=== PATIENT | female | born 1965 | race Caucasian/White ===

== ENCOUNTER → 2023-02-01 09:11 | Outpatient (CLI) | payer OTHER, SELFPAY ==
--- NOTE | ~2023-02-01 | CT_ITS ---
EXAMINATION: CT soft tissue neck w con DATE: 02/02/2023 10:09 INDICATION: Thyroid nodule. TECHNIQUE: Computed tomography (CT) of the neck was performed with 75 mL Omnipaque-350 intravenous co ntrast. Automated exposure control and iterative reconstruction technique were employed. The dose-gautam gth product was 388.87 mGy-cm. COMPARISON: None FINDINGS: There are multiple nodules in the thyroid measuring up to 4.0 cm on the right. There are no pathologically enlarged lymph nodes. The cervical carotid arteries are normal. There is severe cervi redd spondylosis, worst at C5-C6. There is mild mucosal thickening in the ethmoid sinuses. The mastoid air cells are normal. IMPRESSION: 1. Multinodular goiter. Ultrasound-guided fine-needle aspiration of the 4.0 cm right thyroid nodule i s recommended. Reviewed, dictated and finalized at location A. IMPRESSION: 1. Multinodular goiter. Ultrasound-guided fine-needle aspiration of the 4.0 cm right thyroid nodule is recommended.
== END ==
DX: E04.2 Nontoxic multinodular goiter (principal)
CPT/HCPCS: 70491; Q9967

== ENCOUNTER 2023-08-22 14:45 | Outpatient (CLI) | payer OTHER, SELFPAY ==
--- NOTE | ~2023-08-22 | US_ITS ---
Thyroid ultrasound. Clinical History: Thyroid nodule Findings: Real-time sonography of the thyroid gland was performed. The right lobe has been surgicall y removed The left lobe measures 5.8 x 1.6 x 1.9 cm. Left thyroid lobe is heterogeneous. There is a 5 mm hypoechoic nodule at the left upper pole. Impression: 5 mm hypoechoic left upper pole thyroid nodule. Given size, no further follow-up required. Status post right hemithyroidectomy.. Reviewed, dictated and finalized at location M. EXAMINER Impression: 5 mm hypoechoic left upper pole thyroid nodule. Given size, no further follow-u p required. Status post right hemithyroidectomy..
== END 2023-08-22 14:46 ==
LOC: MICIMG 14:47
DX: E04.1 Nontoxic single thyroid nodule (principal)
CPT/HCPCS: 76536

== ENCOUNTER 2023-11-04 18:16 | Emergency (ER) | payer OTHER, SELFPAY ==
--- NOTE | ~2023-11-04 | XR_ITS ---
EXAM: XR ankle RT min 3V DATE: 11/04/2023 18:44 HISTORY: twisted right ankle. lateral side pain . COMPARISON: None available. FINDINGS: Normal mineralization. No fracture or dislocation. No lytic or blastic lesion. Old lateral malleolus avulsion fracture fragment. Mild tibiotalar degenerative change. Minimal plantar enthesopa thy. No erosion or periosteal change. Ankle joint effusion. IMPRESSION: No acute osseous finding in the right ankle. Reviewed, dictated and finalized at location K.
[2023-11-04 18:45] VITALS: BP 137/88; PULSE 83; RESP 16; TEMP 36.6; O2SAT 99
--- NOTE | 2023-11-04 18:50 | ED.LOWEXIN ---
HPI - Extremity Injury (Lower) General Chief Complaint: Extremity Injury, Lower Stated Complaint: right ankle pain/twisted Time Seen by Provider: 11/04/23 18:50 Source: patient Mode of arrival: ambulatory Limitations: no limitations History of Present Illness HPI Narrative: 57 yo F presents with c/o R ankle pain and swelling. Walked outside this AM to go to car and twisted right ankle. States she fell to ground and R ankle was under her when falling. Was able to get up on her own. Was visitiing daughter in [facility] and had to drive home approx. 4 hrs. Using 's cane at home which she states is helping relieve some pain. ambulatory with slight limp. ROM and distal NV intact. All systems reviewed and negative except as noted above. Related Data Home Medications Medication Instructions Recorded Confirmed esomeprazole magnesium 40 mg 40 mg PO DAILY 11/04/23 11/04/23 capsule,delayed release progesterone micronized 200 mg 200 mg PO DIRECTED 11/04/23 11/04/23 capsule Allergies Allergy/AdvReac Type Severity Reaction Status Date / Time No Known Allergies Allergy Verified 11/04/23 19:14 Review of Systems Review of Systems: CONSTITUTIONAL: Denies fever, chills, or sweats. EYES: Denies visual changes, redness, or discharge. ENT: Denies rhinorrhea, congestion, sore throat, or otalgia. CARDIOVASCULAR: Denies chest pain, palpitations, or edema. RESPIRATORY: Denies cough or dyspnea. GASTROINTESTINAL: Denies abdominal pain, nausea, vomiting, or diarrhea. GENITOURINARY: Denies dysuria or hematuria. SKIN: Denies rash or itching. MUSCULOSKELETAL: Reports right ankle pain and swelling. Denies back pain. NEUROLOGIC: Denies headache, numbness, or weakness. PSYCHIATRIC: Denies anxiety or depression. All other systems reviewed are negative, except as documented in HPI. PMFSH Comments At time of signature, agree with nursing past medical, surgical, social and family history. There is no relevant family history pertinent to the presenting complaint. Exam Narrative: GENERAL: This is a well-nourished, well-developed patient, in no apparent distress. HEAD: normocephalic, atraumatic. EYES: PERRL. Sclera clear/white. Vision is grossly intact. EARS: External ears normal NOSE: External nose normal NECK: Neck supple, non-tender without lymphadenopathy, masses or thyromegaly. CARDIOVASCULAR: Regular rate and rhythm without murmurs, gallops, or rubs. RESPIRATORY: Clear to auscultation. Breath sounds equal bilaterally. No wheezes, rales, or rhonchi. SKIN: warm, Dry, intact with no suspicious lesions or rash, good texture and turgor. NEURO: awake, alert, and oriented to person, place and time. There were no obvious focal neurologic abnormalities. EXTREMITIES: Swelling to lateral aspect right ankle. No deformity noted. tenderness to posterior and anterior TFL, no instability noted. Course Course Level of Care: Express Care Visit Vital Signs Vital signs: Vital Signs Temperature 36.6 C 11/04/23 18:45 Pulse Rate 83 11/04/23 18:45 Respiratory Rate 16 11/04/23 18:45 Blood Pressure 137/88 11/04/23 18:45 Pulse Oximetry 99 11/04/23 18:45 Temperature 36.6 C 11/04/23 18:45 Pulse Rate 83 11/04/23 18:45 Respiratory Rate 16 11/04/23 18:45 Blood Pressure 137/88 11/04/23 18:45 Pulse Oximetry 99 11/04/23 18:45 Reviewed MDM - Extremity Injury (Lower) MDM Narrative Medical decision making narrative: Discussed x-ray results with patient. Negative for fracture. Placed in Nick wrap. Recommend rice. Patient is aware of diagnosis, understands and agrees to treatment plan. Anticipatory guidance given. Patient agrees to follow-up as directed and is aware of reasons to seek care at the emergency department. Portions of this record may have been created with voice recognition software Differential Diagnosis Differential diagnosis: Likely ankle sprain and strain Imaging Data
== END 2023-11-04 19:32 | disposition home or self-care (01) ==
PROVIDERS: Emergency Provider Nurse Practitioner Family; PCP Internal Medicine
DX: M25.471 Effusion, right ankle (principal); S93.401A Sprain of unspecified ligament of right ankle, initial encounter; W18.39XA Other fall on same level, initial encounter
CPT/HCPCS: 73610; 99213; G0463

== ENCOUNTER 2024-03-16 07:46 | Outpatient (CLI) | payer OTHER, SELFPAY ==
--- NOTE | ~2024-03-16 | MM_ITS ---
EXAMINATION: MM screening [facility] HISTORY: Screening TECHNIQUE: Craniocaudal and mediolateral oblique 3-D tomosynthesis images were obtained and synthetic 2-D images were generated. CAD analysis was submitted and interpreted. COMPARISON: No prior mammogram is available for comparison at this institution. BREAST PARENCHYMAL COMPOSITION: Not dense: There are scattered areas of fibroglandular density. FINDINGS: There is no evidence of suspicious mass, calcification, or architectural distortion to sugg est malignancy in either breast. There has been no suspicious interval change. IMPRESSION: 1. No mammographic evidence of malignancy. 2. Recommend routine screening mammography in one year. BI-RADS Category 1: Negative Reviewed, dictated and finalized at location B.
== END 2024-03-16 07:47 ==
LOC: MICIMG 07:47
PROVIDERS: PCP Internal Medicine
DX: Z12.31 Encounter for screening mammogram for malignant neoplasm of breast (principal)
CPT/HCPCS: 77063; 77067

== ENCOUNTER 2024-04-12 14:40 | Outpatient (CLI) | payer OTHER, SELFPAY | END 2024-04-12 14:41 | disposition home or self-care (01) | PROVIDERS: PCP Internal Medicine; Visit Provider Obstetrics & Gynecology Gynecology | DX: Z78.0 Asymptomatic menopausal state (principal) | CPT/HCPCS: 99199 ==

== ENCOUNTER 2024-04-30 14:40 | Outpatient (CLI) | payer OTHER, SELFPAY ==
--- NOTE | ~2024-04-30 | DEXA_ITS ---
Bone Density Report Name: MEGAN CARPENTER Age: 58 Sex: Female Ethnicity: White Date of : 1965 Indication: postmenopausal; screening for osteoporosis; Referring Provider: La Herrmann Study: Bone densitometry was performed. Exam Date: April 30, 2024 Accession number: [id number] Bone Density: Region BMD T-score Z-score Classification AP Spine(L1-L4) 0.919 -1.2 0.3 Osteopenia Femoral Neck (Left) 0.727 -1.1 0.2 Osteopenia Total Hip (Left) 0.879 -0.5 0.5 Normal Femoral Neck (Right) 0.719 -1.2 0.1 Osteopenia Total Hip (Right) 0.837 -0.9 0.1 Normal Femoral Neck Mean 0.723 -1.1 0.2 Osteopenia Total Hip Mean 0.858 -0.7 0.3 Normal World Health Organization criteria for BMD impression classify patients as: Normal (T-score at or above -1.0), Osteopenia (T-score between -1.0 and -2.5), or Osteoporosis (T-score at or below -2.5). 10-year Fracture Risk(1): Major Osteoporotic Fracture 7.4% Hip Fracture 0.5% Reported Risk Factors: [place] (), Neck BMD=0.719, BMI=27.5 (1) FRAX(R) Version 3.08. Fracture probability calculated for an untreated patient. Fracture probability may be lower if the patient has received treatment. Clinical Information Provided by Patient: Has used the following medications: Vitamin D, Calcium Patient maximum height was 64 Menopause Age: 48 Drinks caffeinated beverages Onset of menses at age 12 Number of children 2 Impression: The patient has low bone mass, based on the Total Spine T-score. Discussion: BONE DENSITY IS LOW AT ONE OR MORE SKELETAL SITES. This patient's lowest T-score is low at one or more skeletal sites. It meets the World Health Organization's (WHO) criteria for ?low bone mass? (T-score between -1.0 and -2.5). The patient's 10-year risk of fracture as calculated by FRAX is less than the threshold where pharmacological therapy is recommended by the National Osteoporosis Foundation (NOF). However, all treatment decisions require clinical judgment and consideration of individual patient factors, including patient preferences, comorbidities, previous drug use, risk factors not captured in the FRAX model (e.g., frailty, falls, vitamin D deficiency, increased bone turnover, interval significant decline in bone density) and possible under or overestimation of fracture risk by FRAX. The patient should follow a healthful lifestyle (good nutrition with adequate calcium and vitamin D, and appropriate weight-bearing exercise). Follow-Up: Consider repeating this study in 2 to 3 years to reassess this patient's status, or sooner if there is some new clinical indication. Reported by: CHEIKH on 05/07/2024 11:26:00 AM. Reviewed, dictated and finalized at location A.
== END 2024-04-30 14:41 | disposition home or self-care (01) ==
PROVIDERS: PCP Internal Medicine
DX: Z78.0 Asymptomatic menopausal state (principal); M85.89 Other specified disorders of bone density and structure, multiple sites
CPT/HCPCS: 77080

== ENCOUNTER 2024-05-25 11:49 | Emergency (ER) | payer OTHER, SELFPAY ==
[2024-05-25 11:51] VITALS: BP 151/86; PULSE 84; RESP 18; TEMP 36.1; O2SAT 99
[2024-05-25 13:15] VITALS: BP 153/82; PULSE 83; RESP 17; O2SAT 100; O2SAT 99
[2024-05-25 13:24] LABS: Basophils Absolute Auto 0.1 K/mm3 (0.0-0.1); Basophils Percent Auto 0.7 % (0.2-1.2); Eosinophils Percent Auto 0.5 % (0-4.4); Hemoglobin 14.1 g/dL (12.0-15.0); Immature Granulocyte Absolute 0.02 K/mm3 (0.00-0.031); Immature Granulocyte Percent A 0.3 % (0-0.5); Lymphocytes Absolute Auto 0.96 K/mm3 (0.9-3.2); Lymphocytes Percent Auto 12.6 % (18.3-44.2); Mean Corpuscular HGB Conc 32.8 g/dl (32-36); Mean Corpuscular Hemoglobin 28.4 pg (26-34); Mean Corpuscular Volume 86.5 fl (80-100); Monocytes Absolute Auto 0.4 K/mm3 (0.1-0.6); Monocytes Percent Auto 4.7 % (2.6-8.5); Neutrophils Absolute Auto 6.2 K/mm3 (1.3-6.7); Neutrophils Percent Auto 81.2 % (45.5-73.1); Platelet Count Result 279 k/mm3 (150-375); Red Blood Count 4.97 M/mm3 (4.2-5.4); Red Cell Distribution Width 12.7 % (11.5-14.5); White Blood Count 7.6 K/mm3 (4.5-10.0)
--- NOTE | 2024-05-25 13:32 | ED.GENADULT ---
HPI - General Adult General Chief complaint: Unspecified Stated complaint: cant function Time Seen by Provider: 05/25/24 13:02 History of Present Illness HPI narrative: Patient with history of migraines and strong family history of migraines presents here due to occasional episodes where she will have her start with pressure/tightness to her neck muscles that goes up to the back of her head, after which she gets very nauseous and low energy and feels like she cannot function for the rest of the day and is just mostly sleeping. Does not feel like her migraines when she was much younger. However these are similar to the migraines that 1 of her other daughters has. No recent trauma. No focal numbness or weakness. Related Data Home Medications Medication Instructions Recorded Confirmed esomeprazole magnesium 40 mg 40 mg PO DAILY 11/04/23 11/04/23 capsule,delayed release progesterone micronized 200 mg 200 mg PO DIRECTED 11/04/23 11/04/23 capsule Allergies Allergy/AdvReac Type Severity Reaction Status Date / Time No Known Allergies Allergy Verified 05/25/24 13:20 Review of Systems Review of Systems: All systems reviewed & are unremarkable except as noted in HPI and below Exam Narrative: EXAMINATION OF ORGAN SYSTEMS/BODY AREAS: Constitutional: Vital signs per nursing GENERAL:[No acute distress, non-toxic appearing.] HEAD: Normal with no signs of head trauma. EYES: EOMI, conjunctiva normal ENT: Hearing grossly intact LUNGS: Nonlabored breathing. HEART: [Regular rate and rhythm] ABD: [Soft], [nontender to palpation] EXT: Normal range of motion SKIN: [No rashes or lesions.] NEURO: [Alert and oriented x 3. No gross focal sensory or strength deficits.] PSYCH: Normal affect Course Vital Signs Vital signs: Vital Signs Temperature 97.0 F L 05/25/24 11:51 Pulse Rate 84 05/25/24 11:51 Respiratory Rate 18 05/25/24 11:51 Blood Pressure 151/86 H 05/25/24 11:51 Pulse Oximetry 99 05/25/24 11:51 Oxygen Delivery Room Air 05/25/24 11:51 Temperature 97.0 F L 05/25/24 11:51 Pulse Rate 73 05/25/24 15:25 Respiratory Rate 17 05/25/24 15:25 Blood Pressure 130/82 05/25/24 15:25 Pulse Oximetry 100 05/25/24 15:25 Oxygen Delivery Room Air 05/25/24 11:51 Medical Decision Making MDM Narrative Medical decision making narrative: 58F presents to the emergency department for headache. Patient is hemodynamically stable. No focal neurological or cranial nerve deficits on exam. No meningeal signs. The headache was gradual in onset, it is not exertional and does not appear consistent with subarachnoid hemorrhage or intracranial bleeding. No trauma. She does have a strong family and personal history of migraines and her symptoms do seem consistent with likely tension type headaches. Patient is given headache cocktail including Reglan, Toradol. Given her history of thyroid issues I did also a team broad workup which is thankfully normal. On reevaluation, the patient feels significantly better with the headache resolved. No neurological deficits. Patient is comfortable going home for outpatient follow-up with primary care physician and/or neurology and provided with strict return precautions, especially for worsening headaches, neck pain/stiffness, fever or weakness, numbness/tingling or persistent vomiting. Repeat blood pressure is now 126/78. Vital Signs Vital Signs: Vital Signs Temperature 97.0 F L 05/25/24 11:51 Pulse Rate 84 05/25/24 11:51 Respiratory Rate 18 05/25/24 11:51 Blood Pressure 151/86 H 05/25/24 11:51 Pulse Oximetry 99 05/25/24 11:51 Oxygen Delivery Room Air 05/25/24 11:51 Temperature 97.0 F L 05/25/24 11:51 Pulse Rate 73 05/25/24 15:25 Respiratory Rate 17 05/25/24 15:25 Blood Pressure 130/82 05/25/24 15:25 Pulse Oximetry 100 05/25/24 15:25 Oxygen Delivery Room Air 05/25/24 11:51 Lab Data 05/25/24 13:17 10
[2024-05-25 13:33] LABS: Add Urine Microscopic? NO; Appearance Urine Clear (Clear); Bacteria Urine None Seen /hpf; Bilirubin Urine Negative (Negative); Blood Urine Non-Hemolyzed Trace (Negative); Color Urine Yellow (Yellow); Glucose Urine UA Negative (Negative); Ketones Urine 3+ mg/dL (Negative); Leukocyte Esterase Ur Negative LEU/UL (Negative); Nitrate Urine Negative (Negative); Non Pathogenic Casts 0-2; Protein Urine Negative (Negative); Specific Grav Ur 1.019 (1.001-1.035); Squamous Epithelial Cell Urine None Seen /hpf (Few); WBC Urine 0-5 /hpf (0-3)
[2024-05-25 13:35] LABS: Alanine Aminotransferase 25 U/L (6-35); Albumin Level 4.3 g/dL (3.5-5.1); Alkaline Phosphatase 70 U/L (38-126); Anion Gap 9 mmol/L (4-12); Aspartate Amino Transferase 31 U/L (14-36); Bilirubin,Total 1.4 mg/dL (0.2-1.3); Blood Urea Nitrogen 14 mg/dL (7-17); Calcium 8.6 mg/dL (8.4-10.2); Carbon Dioxide 27 mmol/L (22-30); Chloride 100 mmol/L (98-107); Estimated CRCL calculation 76 ml/min; Estimated Glomerular Filt Rate > 60; Glucose 81 mg/dL (65-110); Potassium 3.7 mmol/L (3.4-5.0); Sodium 136 mmol/L (137-145)
[2024-05-25 14:18] LABS: Thyroid Stimulating Hormone Reflex 0.643 uIU/mL (0.465-4.68)
[2024-05-25] MEDS: METOCLOPRAMIDE HCL INJ 10 MG/2 ML VIAL IM (14:20)
[2024-05-25] MEDS: KETOROLAC 30 MG/ML VIAL (*BKC) 15 MG IM (14:21)
[2024-05-25 15:25] VITALS: BP 130/82; PULSE 73; RESP 17; O2SAT 100
== END 2024-05-25 15:27 | disposition home or self-care (01) ==
PROVIDERS: Emergency Provider Emergency Medicine; PCP Internal Medicine
DX: G44.209 Tension-type headache, unspecified, not intractable (principal)
CPT/HCPCS: 36415; 80053; 81003; 84443; 85025; 96372; 99284; J1885; J2765

== ENCOUNTER 2025-03-18 10:55 | Outpatient (CLI) | payer OTHER, SELFPAY ==
--- NOTE | ~2025-03-18 | MM_ITS ---
EXAMINATION: MM screening [facility] BI [facility] HISTORY: Screening TECHNIQUE: Craniocaudal and mediolateral oblique 3-D tomosynthesis images were obtained and synthetic 2-D images were generated. CAD analysis was submitted and interpreted. COMPARISON: 03/16/2024 BREAST PARENCHYMAL COMPOSITION: Not dense: There are scattered areas of fibroglandular density. FINDINGS: There is a focal asymmetry in the upper central right breast, anterior-middle depth with as sociated clustered calcifications which are indeterminate. Left breast is stable without evidence for malignancy. IMPRESSION: 1. Right breast asymmetry with associated indeterminate clustered calcifications, upper central right breast, anterior-middle depth. 2. Additional mammographic views and possible breast ultrasound are recommended. BI-RADS Category 0: Incomplete: Needs additional imaging evaluation. Reviewed, dictated and finalized at location B. IMPRESSION: 1. Right breast asymmetry with associated indeterminate clustered calcification s, upper central right breast, anterior-middle depth. 2. Additional mammographic views and possible breast ultrasound are recommended . BI-RADS Category 0: Incomplete: Needs additional imaging evaluation.
== END 2025-03-18 10:56 | disposition home or self-care (01) ==
LOC: MICIMG 10:55
PROVIDERS: PCP Internal Medicine; Visit Provider Obstetrics & Gynecology
DX: Z12.31 Encounter for screening mammogram for malignant neoplasm of breast (principal); N64.89 Other specified disorders of breast
CPT/HCPCS: 77063; 77067

== ENCOUNTER 2025-04-25 13:17 | Outpatient (CLI) | payer OTHER, SELFPAY ==
--- NOTE | ~2025-04-25 | MMUS_ITS ---
EXAMINATION: MM diagnostic jovanni RT w tyler; diagnostic right breast ultrasound HISTORY: Inconclusive mammogram. Focal asymmetry with associated calcifications in the upper central right breast, anterior to middle depth TECHNIQUE: [Additional images of the right breast]] were performed using full field digital mammography. 3-D tomosynthesis were also obtained and synthetic 2- D images were generated. CAD analysis was submitted and interpreted. High resolution right breast ultrasound was performed.] ] COMPARISON: Mammograms from 03/18/2025, 03/16/2024 BREAST PARENCHYMAL COMPOSITION: There are scattered areas of fibroglandular density. FINDINGS: MAMMOGRAPHIC FINDINGS: There is a hyperdense spiculated mass in the right breast at the 12:00 position 3.7 cm from the nipple, which measures 1.0 x 0.8 x 0.7 cm with associated grouping of clustered calcifications. The finding probably corresponds with a heterogeneous mass identified in the right breast ultrasound at the 12:00 position 3 cm from the nipple. ULTRASOUND: There is a 7 x 3 x 3 mm heterogeneous masslike structure in the right breast at the 12:00 position 3 cm from the nipple. Margins are partially circumscribed and partially indistinct. There is internal color Doppler flow. No posterior shadowing. The finding probably corresponds with the mammographic mass at the 12:00 position. There is a 3 x 5 x 3 mm septated cyst in the right breast at the 10:00 position 5 cm from the nipple. IMPRESSION/RECOMMENDATION: 1. There is a 1.0 cm mass in the right breast at the 12:00 position. The finding is suspicious. A stereotactic biopsy is recommended. BI-RADS 4-Suspicious finding. Protocol insures that results of the study are called and/or faxed to the referring clinician's office and documented in the patient's chart per critical findings protocol. Reviewed, dictated and finalized at location Q. IMPRESSION/RECOMMENDATION: 1. There is a 1.0 cm mass in the right breast at the 12:00 position. The findin g is suspicious. A stereotactic biopsy is recommended. BI-RADS 4-Suspicious finding. Protocol insures that results of the study are called and/or faxed to the refer ring clinician's office and documented in the patient's chart per critical find ings protocol. IMPRESSION/RECOMMENDATION: 1. There is a 1.0 cm mass in the right breast at the 12:00 position. The findin g is suspicious. A stereotactic biopsy is recommended. BI-RADS 4-Suspicious finding. Protocol insures that results of the study are called and/or faxed to the refer ring clinician's office and documented in the patient's chart per critical find ings protocol.
--- OUTSIDE RECORDS SUMMARY | 2025-04-25 13:33 | XMS_ITS | Encounter Summary ---
Author Organization [facility] Health Address [address] [place] [address] Care Team Providers Care Stretcher Leveler Operator Helper Name Role Phone Unavailable Primary Care Provider Unavailabl e Prior Encounters Date Type Department Care Team Description 01/10/2022 Travel 01/10/2022 3:00 PM CDT Office Visit [facility] [address] [place] [address] Anahi Cast DDS 02/23/2021 Travel 02/23/2021 10:00 AM CDT Office Visit [facility] [address] [place] [address] Kanchan Butler DMD 09/09/2019 Converted 13x Documents [facility] [address], [address] [place] [id number] <No scans attached> 09/09/2019 Converted CPS Chart Documents [facility] [address] [place] [address] <No scans attached> 09/09/2019 Converted CPS Chart Documents [facility] [address], [address] [place] [address] <No scans attached> 09/09/2019 Converted 13x Documents [facility] [address] [place] [address] <No scans attached> 09/09/2019 Converted 13x Documents [facility] [address], [address] [place] [address] <No scans attached> Last Filed Vital Signs Vital Sign Reading Time Taken Comments Blood Pressure 129/89 01/10/2022 3:24 PM CDT Pulse 83 01/10/2022 3:24 PM CDT Temperature 36.2 C (97.2 F) 01/10/2022 3:24 PM CDT Respiratory Rate - - Oxygen Saturation - - Inhaled Oxygen Concentration - - Weight 68 kg (150 lb) 01/10/2022 3:24 PM CDT Height 162.6 cm (5' 4) 01/10/2022 3:24 PM CDT Body Mass Index 25.75 01/10/2022 3:24 PM CDT Plan of Treatment Not on file Procedures Procedure Name Priority Date/Time Associated Diagnosis Comments TOPICAL APPLICATION OF FLUORIDE VARNISH Routine 01/10/2022 3:00 PM CDT ORAL HYGIENE INSTRUCTIONS Routine 2021 3:00 PM CDT PROPHYLAXIS - ADULT Routine 01/10/2022 3 :00 PM CDT INTRAORAL PHOTO Routine 01/10/2022 3:00 PM CDT INTRAORAL PHOTO Routine 01/10/2022 3:00 PM CDT INTRAORAL PHOTO Routine 01/10/2022 3:00 PM CDT INTRAORAL PHOTO Routine 01/10/2022 3:00 PM CDT COMPREHENSIVE ORAL EVALUATION - NEW OR ESTABLISHED PATIENT Routine 01/10/2022 3:00 PM CDT INTRAORAL - COMPREHENSIVE SERIES OF RADIOGRAPHIC IMAGES Routine 01/10/2022 3:00 PM CDT PANORAMIC RADIOGRAPHIC IMAGE Routine 01/10/2022 3:00 PM CDT Max OCCLUSAL GUARD ADJUSTMENT Routine 02/23/2021 10:00 AM CDT 13 O AMALGAM 1 SURFACE Routine 2:00 AM PSYCHOLOGIST PRIVATE PRACTICE 12 O AMALGAM 1 SURFACE Routine 2:00 AM PSYCHOLOGIST PRIVATE PRACTICE OCCLUSAL GUARD HARD APPLIANCE, FULL ARCH Routine 10/26/2020 2:00 AM PSYCHOLOGIST PRIVATE PRACTICE 13 CORE BUILDUP, INCLUDING ANY PINS WHEN REQUIRED Routine 10/26/2020 2:00 AM PSYCHOLOGIST PRIVATE PRACTICE 13 CEMENT CROWN Routine 10/26/2020 2:00 AM PSYCHOLOGIST PRIVATE PRACTICE ORAL HYGIENE INSTRUCTIONS Routine 2020 2:00 AM PSYCHOLOGIST PRIVATE PRACTICE 13 CERECFIRED CROWNPOST Routine 10/27/19 2:00 AM PSYCHOLOGIST PRIVATE PRACTICE PERIODIC ORAL EVALUATION - ESTABLISHED PATIENT Routine 10/26/2020 2:00 AM PSYCHOLOGIST PRIVATE PRACTICE INTRAORAL - COMPREHENSIVE SERIES OF RADIOGRAPHIC IMAGES Routine 10/26/2020 2:00 AM PSYCHOLOGIST PRIVATE PRACTICE ADDITIONAL X-RAY Routine 10/26/2020 2:00 AM PSYCHOLOGIST PRIVATE PRACTICE PROPHYLAXIS - ADULT Routine 10/26/2020 2 :00 AM PSYCHOLOGIST PRIVATE PRACTICE INTRAORAL PHOTO Routine 10/26/2020 2:00 AM PSYCHOLOGIST PRIVATE PRACTICE INTRAORAL PHOTO Routine 10/26/2020 2:00 AM PSYCHOLOGIST PRIVATE PRACTICE INTRAORAL PHOTO Routine 10/26/2020 2:00 AM PSYCHOLOGIST PRIVATE PRACTICE INTRAORAL PHOTO Routine 10/26/2020 2:00 AM PSYCHOLOGIST PRIVATE PRACTICE ORAL HYGIENE INSTRUCTIONS Routine 2018 2:00 AM CDT TOPICAL APPLICATION OF FLUORIDE VARNISH Routine 03/12/2019 2:00 AM CDT PROPHYLAXIS - ADULT Routine 03/12/2019 2 :00 AM CDT PERIODIC ORAL EVALUATION - ESTABLISHED PATIENT Routine 03/12/2019 2:00 AM CDT BITEWINGS - FOUR RADIOGRAPHIC IMAGES Routine 03/12/2019 2:00 AM CDT ADDITIONAL X-RAY Routine 03/12/2019 2:00 AM CDT ADDITIONAL X-RAY Routine 03/12/2019 2:00 AM CDT ADDITIONAL X-RAY Routine 03/12/2019 2:00 AM CDT ADDITIONAL X-RAY Routine 03/12/2019 2:00 AM CDT ADDITIONAL X-RAY Routine 03/12/2019 2:00 AM CDT SINGLE X-RAY Routine 03/12/2019 2:00 AM CDT INTRAORAL PHOTO Routine 03/12/2019 2:00 AM CDT INTRAORAL PHOTO Routine 03/12/2019 2:00 AM CDT INTRAORAL PHOTO Routine 03/12/2019 2:00 AM CDT INTRAORAL PHOTO Routine 03/12/2019 2:00 AM CDT ORAL HYGIENE INSTRUCTIONS Routine 2018 2:00 AM PSYCHOLOGIST PRIVATE PRACTICE TOPICAL APPLICATION OF FLUORIDE VARNISH Routine 09/04/2018 2:00 AM PSYCHOLOGIST PRIVATE PRACTICE PROPHYLAXIS - ADULT Routine 09/04/2018 2 :00 AM PSYCHOLOGIST PRIVATE PRACTICE PERIODIC ORAL EVALUATION - ESTABLISHED PATIENT Routine 09/04/2018 2:00 AM PSYCHOLOGIST PRIVATE PRACTICE COMPREHENSIVE ORAL EVALUATION - NEW OR ESTABLISHED PATIENT Routine 02/19/2018 2:00 AM CDT SCALING IN PRESENCE OF GENERALIZED MODERATE OR SEVERE GINGIVAL INFLAMMATION Routine 02/19/2018 2:00 AM CDT ORAL HYGIENE INSTRUCTIONS Routine 2017 2:00 AM CDT 1 FM IRR W/GROSS SCALE Routine 8 2:00 AM CDT TOPICAL APPLICATION OF FLUORIDE VARNISH Routine 02/19/2018 2:00 AM CDT PANORAMIC RADIOGRAPHIC IMAGE Routine 02/19/2018 2:00 AM CDT BITEWINGS - FOUR RADIOGRAPHIC IMAGES Routine 02/19/2018 2:00 AM CDT INTRAORAL PHOTO Routine 02/19/2018 2:00 AM CDT INTRAORAL PHOTO Routine 02/19/2018 2:00 AM CDT INTRAORAL PHOTO Routine 02/19/2018 2:00 AM CDT INTRAORAL PHOTO Routine 02/19/2018 2:00 AM CDT 15 CEMENT CROWN Routine 02/16/2017 2:00 AM CDT 14 CEMENT CROWN Routine 02/16/2017 2:00 AM CDT 15 CERECFIRED CROWNPOST Routine 02/17/20 17 2:00 AM CDT 14 CERECFIRED CROWNPOST Routine 02/17/20 17 2:00 AM CDT PANORAMIC RADIOGRAPHIC IMAGE Routine 02/16/2017 2:[address] CD[address] CAPTURE AND INTERPRETATION WITH FIELD OF VIEW OF BOTH JAWS; WITH OR WITHOUT CRANIUM Routine 02/16/2017 2:00 AM CDT ADDITIONAL X-RAY Routine 02/16/2017 2:00 AM CDT SINGLE X-RAY Routine 02/16/2017 2:00 AM CDT SINGLE X-RAY Routine 02/16/2017 2:00 AM CDT CANCELLED APPOINTMENT Routine 02/12/2016 2:00 AM CDT CANCELLED APPOINTMENT Routine 02/12/2016 2:00 AM CDT 3 CEMENT CROWN Routine 08/20/2015 2:00 AM PSYCHOLOGIST PRIVATE PRACTICE 3 CERECFIRED CROWNPOST Routine 5 2:00 AM PSYCHOLOGIST PRIVATE PRACTICE SINGLE X-RAY Routine 08/20/2015 2:00 AM PSYCHOLOGIST PRIVATE PRACTICE ORAL HYGIENE INSTRUCTIONS Routine 2014 2:00 AM PSYCHOLOGIST PRIVATE PRACTICE TOPICAL APPLICATION OF FLUORIDE VARNISH Routine 08/17/2015 2:00 AM PSYCHOLOGIST PRIVATE PRACTICE PROPHYLAXIS - ADULT Routine 08/17/2015 2 :00 AM PSYCHOLOGIST PRIVATE PRACTICE PERIODIC ORAL EVALUATION - ESTABLISHED PATIENT Routine 08/17/2015 2:00 AM PSYCHOLOGIST PRIVATE PRACTICE BITEWINGS - FOUR RADIOGRAPHIC IMAGES Routine 08/17/2015 2:00 AM PSYCHOLOGIST PRIVATE PRACTICE ADDITIONAL X-RAY Routine 08/17/2015 2:00 AM PSYCHOLOGIST PRIVATE PRACTICE ADDITIONAL X-RAY Routine 08/17/2015 2:00 AM PSYCHOLOGIST PRIVATE PRACTICE ADDITIONAL X-RAY Routine 08/17/2015 2:00 AM PSYCHOLOGIST PRIVATE PRACTICE ADDITIONAL X-RAY Routine 08/17/2015 2:00 AM PSYCHOLOGIST PRIVATE PRACTICE ADDITIONAL X-RAY Routine 08/17/2015 2:00 AM PSYCHOLOGIST PRIVATE PRACTICE SINGLE X-RAY Routine 08/17/2015 2:00 AM PSYCHOLOGIST PRIVATE PRACTICE INTRAORAL PHOTO Routine 08/17/2015 2:00 AM PSYCHOLOGIST PRIVATE PRACTICE ORAL HYGIENE INSTRUCTIONS Routine 2013 2:00 AM PSYCHOLOGIST PRIVATE PRACTICE TOPICAL APPLICATION OF FLUORIDE VARNISH Routine 08/13/2014 2:00 AM PSYCHOLOGIST PRIVATE PRACTICE PROPHYLAXIS - ADULT Routine 08/13/2014 2 :00 AM PSYCHOLOGIST PRIVATE PRACTICE PERIODIC ORAL EVALUATION - ESTABLISHED PATIENT Routine 08/13/2014 2:00 AM PSYCHOLOGIST PRIVATE PRACTICE CANCELLED APPOINTMENT Routine 07/05/2013 2:00 AM PSYCHOLOGIST PRIVATE PRACTICE PROPHYLAXIS - ADULT Routine 06/06/2013 2 :00 AM CDT PERIODIC ORAL EVALUATION - ESTABLISHED PATIENT Routine 06/06/2013 2:00 AM CDT 5 MO COMPOSITE FILLING Routine 3 2:00 AM CDT PROPHYLAXIS - ADULT Routine 12/03/2012 2 :00 AM CDT PERIODIC ORAL EVALUATION - ESTABLISHED PATIENT Routine 12/03/2012 2:00 AM CDT 19 LIMITED ORAL EVALUATION - PROBLEM FOCUSED Routine 08/22/2012 2:00 AM PSYCHOLOGIST PRIVATE PRACTICE 18 LIMITED ORAL EVALUATION - PROBLEM FOCUSED Routine 08/22/2012 2:00 AM PSYCHOLOGIST PRIVATE PRACTICE 30 CEMENT CROWN Routine 08/08/2012 2:00 AM PSYCHOLOGIST PRIVATE PRACTICE 30 CERECFIRED CROWNPOST Routine 08/08/20 12 2:00 AM PSYCHOLOGIST PRIVATE PRACTICE 19 CEMENT CROWN Routine 08/02/2012 2:00 AM PSYCHOLOGIST PRIVATE PRACTICE 18 CEMENT CROWN Routine 08/02/2012 2:00 AM PSYCHOLOGIST PRIVATE PRACTICE 19 CERECFIRED CROWNPOST Routine 08/02/20 12 2:00 AM PSYCHOLOGIST PRIVATE PRACTICE 18 CERECFIRED CROWNPOST Routine 08/02/20 12 2:00 AM PSYCHOLOGIST PRIVATE PRACTICE SINGLE X-RAY Routine 08/02/2012 2:00 AM PSYCHOLOGIST PRIVATE PRACTICE 19 DOBL AMALGAM 4+ SURFACE Routine 07/27 2:00 AM PSYCHOLOGIST PRIVATE PRACTICE 30 AMALGAM 3 SURFACE Routine 012 2:00 AM PSYCHOLOGIST PRIVATE PRACTICE 15 DOL AMALGAM 3 SURFACE Routine 012 2:00 AM PSYCHOLOGIST PRIVATE PRACTICE 14 MOL AMALGAM 3 SURFACE Routine 012 2:00 AM PSYCHOLOGIST PRIVATE PRACTICE 18 ELIZABETH AMALGAM 2 SURFACE Routine 07/27/20 12 2:00 AM PSYCHOLOGIST PRIVATE PRACTICE 29 O AMALGAM 1 SURFACE Routine 2 2:00 AM PSYCHOLOGIST PRIVATE PRACTICE 13 O AMALGAM 1 SURFACE Routine 2 2:00 AM PSYCHOLOGIST PRIVATE PRACTICE 12 O AMALGAM 1 SURFACE Routine 2 2:00 AM PSYCHOLOGIST PRIVATE PRACTICE 4 O AMALGAM 1 SURFACE Routine 07/27/2012 2:00 AM PSYCHOLOGIST PRIVATE PRACTICE 2 O AMALGAM 1 SURFACE Routine 07/27/2012 2:00 AM PSYCHOLOGIST PRIVATE PRACTICE COMPREHENSIVE ORAL EVALUATION - NEW OR ESTABLISHED PATIENT Routine 07/27/2012 2:00 AM PSYCHOLOGIST PRIVATE PRACTICE PANORAMIC RADIOGRAPHIC IMAGE Routine 07/27/2012 2:00 AM PSYCHOLOGIST PRIVATE PRACTICE [facility] CT CAPTURE AND INTERPRETATION WITH FIELD OF VIEW OF BOTH JAWS; WITH OR WITHOUT CRANIUM Routine 07/27/2012 2:00 AM PSYCHOLOGIST PRIVATE PRACTICE BITEWINGS - FOUR RADIOGRAPHIC IMAGES Routine 07/27/2012 2:00 AM PSYCHOLOGIST PRIVATE PRACTICE BITEWINGS - FOUR RADIOGRAPHIC IMAGES Routine 07/27/2012 2:00 AM PSYCHOLOGIST PRIVATE PRACTICE INTRAORAL PHOTO Routine 07/27/2012 2:00 AM PSYCHOLOGIST PRIVATE PRACTICE INTRAORAL PHOTO Routine 07/27/2012 2:00 AM PSYCHOLOGIST PRIVATE PRACTICE 3 LO COMPOSITE FILLING Routine 2 2:00 AM PSYCHOLOGIST PRIVATE PRACTICE 3 MO COMPOSITE FILLING Routine 2 2:00 AM PSYCHOLOGIST PRIVATE PRACTICE Visit Diagnoses Not on file Insurance [facility]
--- OUTSIDE RECORDS SUMMARY | 2025-04-25 13:33 | XMS_ITS | Clinical Summary ---
Author Organization [facility] [employer] Address [address] [place] [address] Care Team Providers Care Material Inspector Name Role Phone Unavailable Primary Care Provider Unavailabl e Source Comments [facility],non-owned Affiliates and Associated Physician Practices is amultiple site organization consisting of ambulatory clinics and hospital sitesin [place], [place], [place] and [place]. This disclosure is being madepursuant to the Care Everywhere program and may not contain all information available regarding this patient. Last updated 18.[employer] [facility] Allergies Active Allergy Reactions Criticality Noted Date Comments Sulfamethoxazole W-Trimethoprim Urticaria Medium 02/19 Medications * Be aware that medications may not be up to date on this document. Alwaysverify current medications with the patient. estradiol (Estrace) 1 MG tablet Take 1 (one) tablet by mouth once daily Active esomeprazole (NexIUM) 40 MG capsule Take 1 (one) capsule by mouth daily before breakfast Active Progesterone 200 MG capsule Take 1 (one) capsule by mouth once daily 2 Active Social History Tobacco Use Types Packs/Day Years Used Date Smoking Tobacco: Never Smokeless Tobacco: Never Tobacco Cessation:Counseling Given: Not Answered Alcohol Use Standard Drinks/Week Comments Never 0 (1 standard drink = 0.6 oz pur e alcohol) AUDIT-C Answer Date Recorded Q1: How often do you have a drink containing alcohol? Never 03/20/2023 Q2: How many drinks containi ng alcohol do you have on a typical day when you are drinking? Patient does not drink 3 Q3: How often do you have si x or more drinks on one occasion? Never 03/20/2023 Comments No Sex and Gender Information Value Date Recorded Sex Assigned at Not on file Legal Sex Female 7:16 AM PRODUCTION SPECIALIST Gender Identity Not on file Sexual Orientation Not on file Last Filed Vital Signs Vital Sign Reading Time Taken Comments Blood Pressure 142/86 03/20/2023 6:50 PM CDT Pulse 95 03/20/2023 6:50 PM CDT Temperature 36.9 C (98.4 F) 03/20/2023 6:20 PM CDT Respiratory Rate 16 03/20/2023 6:50 PM CDT Oxygen Saturation 98% 03/20/2023 6:50 PM CDT Inhaled Oxygen Concentration - - Weight 81.9 kg (180 lb 8.9 oz) 03/20/2023 10:28 AM CDT Height 162.6 cm (5' 4) 03/20/2023 10:47 AM CDT Body Mass Index 30.99 03/20/2023 10:28 AM CDT Plan of Treatment Health Maintenance Due Date Last Done Comments COLOGUARD (AGES 45-75) - COL ON CA SCREENING 1963 COLON MONITORING 1963 COLONOSCOPY - COLON CA SCREENING 1963 CT COLONOGRAPHY - COLON CA SCREENING 1963 Colorectal Cancer Screening 1963 FIT - COLON CA SCREENING 1963 FLEX SIG - COLON CA SCREENING 1963 MAMMOGRAM 1963 HIV SCREENING 11/19/1978 DTAP/TDAP/TD VACCINES (1 - Tdap) 11/19/1982 PAP SMEAR 11/19/1984 PNEUMOCOCCAL VACCINE 50+ (1 of 1 - PCV) 11/19/2013 ZOSTER VACCINE (1 of 2) 11/19/2013 COVID-19 VACCINE (4 - 2023-2 5 season) 2024 06/14/2022, 11/17/2020, 10/27/2020 DEPRESSION SCREENING 08/21/2024 INFLUENZA VACCINE (#1) 2025 , 08/11/2014, 09/10/2012 LIPID TESTING 06/15/2027 06/15/2022 Respiratory Syncytial Virus (RSV) Vaccine Pt: or over 60 yrs (1 - 1-dose 75+ series) 11/19/2038 HEPATITIS C SCREENING Completed 06/15/2022 HEPATITIS B VACCINE Aged Out No longe r eligible based on patient's age to complete this topic HIB VACCINE Aged Out No longer eligi ble based on patient's age to complete this topic HPV VACCINE Aged Out No longer eligi ble based on patient's age to complete this topic MENINGOCOCCAL (Group B) VACCINE SHARED DECISION-MAKING Aged Out No longer eligible based on patient's age to complete this topic MENINGOCOCCAL GROUPS A/C/Y/W VACCINE Aged Out No longer eligible b ased on patient's age to complete this topic Insurance [employer]
--- OUTSIDE RECORDS SUMMARY | 2025-04-25 13:33 | XMS_ITS | Clinical Summary ---
Author Organization [facility] Address [address], [facility] [address] [place] [address] Phone Care Team Providers Care Annealing Operator Name Role Phone Gabino Ma MD Primary Care Provider [phone] Allergies Active Allergy Reactions Criticality Noted Date Comments Sulfamethoxazole-Trimethop rim Hives 03/04/2016 *Anti-infective Agents - [facility]. Medications latanoprost (XALATAN) 0.005 % Solution 09/30/2022 Active esomeprazole (NexIUM) 40 MG CAPSULE DELAYED RELEASE 09/29/2022 Active sucralfate (CARAFATE) 1 GM Tablet TAKE 1 TABLET BY MOUTH TWICE DAILY ON AN EMPTY STOMACH NEEDED 07/11/2022 Active Progesterone 200 MG Capsule Take 200 mg by mouth daily. 10/15/2022 Active estradiol (ESTRACE) 1 MG Tablet Take 1 mg by mouth daily. 10/15/2022 Active Calcium Carbonate-Vitam in D (CALTRATE 600+D PO) Take by mouth. Active [place]-3 Fatty Acids (OMEGA-3 FISH OIL PO) Take 500 mg by mouth. Active CRANBERRY PO Take 500 mg by mouth. Active Active Problems No known active problems Family History Medical History Relation Name Comments Anxiety disorder Child 1 OCD Child 1 Anxiety disorder Child 2 Migraines Child 2 Heart Disease Father Aneurysm Mother Diabetes Mother Hypertension Sister 1 Rheumatoid Arthritis Sister 1 Hypertension Sister 2 Multiple Sclerosis Sister 2 Skin Cancer Sister 2 Relation Name Status Comments Child 1 Alive Child 2 Alive Father multiple myelom a Mother Alive Sister 1 Alive Sister 2 Alive Social History Tobacco Use Types Packs/Day Years Used Date Smoking Tobacco: Never Smokeless Tobacco: Never Alcohol Use Standard Drinks/Week Comments Yes 1 (1 standard drink = 0.6 oz pur e alcohol) occasionally Comments Unknown Sex and Gender Information Value Date Recorded Sex Assigned at Not on file Legal Sex Female 1:51 PM ENVIRONMENTAL SYSTEMS COORDINATOR Gender Identity Not on file Sexual Orientation Not on file Last Filed Vital Signs Vital Sign Reading Time Taken Comments Blood Pressure 132/90 10/24/2022 1:00 PM ENVIRONMENTAL SYSTEMS COORDINATOR Pulse 90 10/24/2022 1:00 PM ENVIRONMENTAL SYSTEMS COORDINATOR Temperature 36.8 C (98.2 F) 10/24/2022 1:00 PM ENVIRONMENTAL SYSTEMS COORDINATOR Respiratory Rate 18 10/24/2022 1:00 PM ENVIRONMENTAL SYSTEMS COORDINATOR Oxygen Saturation 98% 10/24/2022 1:00 PM ENVIRONMENTAL SYSTEMS COORDINATOR Inhaled Oxygen Concentration - - Weight 81.8 kg (180 lb 4.8 oz) 10/24/2022 1:00 P M ENVIRONMENTAL SYSTEMS COORDINATOR Height 162.6 cm (5' 4) 10/24/2022 1:00 PM ENVIRONMENTAL SYSTEMS COORDINATOR Body Mass Index 30.95 10/24/2022 1:00 PM ENVIRONMENTAL SYSTEMS COORDINATOR Plan of Treatment Health Maintenance Due Date Last Done Comments Hepatitis C Virus (HCV) Screening 1965 Pap Smear 11/19/1984 Cervical Cancer Screening (CCS) 11/19/1993 HPV/Cotest 11/19/1993 Cologuard 11/19/2008 Colonoscopy 11/19/2008 Colorectal Cancer Screening 11/19/2008 Immunochemical Fecal Occult Blood 11/19/2008 Pneumococcal Immunization (50+ years) (1 of 1 - PCV) 11/19/2013 Zoster Immunization (1 of 2) 11/19/2013 Influenza Immunization (#1) 2025 100 03/2022, 05/28/2022, 08/11/2014, Additional history exists SARS-COV-2 Immunization ( season) 2025 06/14/2022, 03/21/2022, 11/17/2020, Additional history exists Respiratory Syncytial Virus (RSV) Immunization (Adult) (1 - 1-dose 75+ series) 11/19/2038 Mammogram Discontinued 08/10/2022, 02/20/2017 DTaP/Tdap/Td Immunization Discontinued 09/13/2022, 08/2006 TdaP Immunization Completed 09/13/2022 Hepatitis B Immunization Aged Out No longer eligible based on patient's age to complete this topic Human Papillomavirus (HPV) Immunization Aged Out No longer eligible based on patient's age to complete this topic Meningococcal Immunization (ACWY) Aged Out No longer eligible based on patient's age to complete this topic Rotavirus Immunization Aged Out No lo nger eligible based on patient's age to complete this topic Insurance AET[employer] Care Teams Annealing Operator Relationship Specialty Start Date End Date Gabino Ma MD [address] [place] [address] PCP - General Internal Medicine 10/17/22
--- OUTSIDE RECORDS SUMMARY | 2025-04-25 13:33 | XMS_ITS | Clinical Summary ---
Author Organization [facility] Address [address] [place] [address] Care Team Providers Care Retail Reset Merchandiser Name Role Phone Unavailable Primary Care Provider Unavailabl e Allergies Active Allergy Reactions Criticality Noted Date Comments Sulfamethoxazole-Trimethop rim Hives 03/04/2016 *Anti-infective Agents - Misc. Medications esomeprazole (NexIUM) [address] capsule 2 Active estradioL (ESTRACE) 1 mg tablet Take 1 mg by mouth 1 (one) time each day. 2 Active latanoprost (XALATAN) 0.005 % ophthalmic solution Administer 1 drop into affected eye(s). 2 Active Intrarosa 6.5 mg insert INSERT 1 VAGINAL INSERT IN THE VAGINA EVERY DAY FOR 28 DAYS. 2 Active progesterone (PROMETRIUM) 200 mg capsule Take by mouth 1 (one) time each day. 2 Active sucralfate (CARAFATE) 1 gram tablet TAKE 1 TABLET BY MOUTH TWICE DAILY 30 MINUTES BEFORE MEALS 2 Active Active Problems Problem Noted Date Diagnosed Date Neck pain 10/26/2021 Occipital lymphadenopathy 10/26/2021 Mammographic microcalcification 05/21/2021 Migraine 05/21/2021 Other specified abnormal findings of blood chemi stry 05/21/2021 Premenstrual tension syndrome 05/21/2021 Immunizations Immunization Administration Dates Next Due Influenza, split virus, trivalent, PF 08/11/2014 ,09/10/2012 Pneumococcal conjugate PCV 13 08/21/2006 Social History Tobacco Use Types Packs/Day Years Used Date Smoking Tobacco: Never Smokeless Tobacco: Never Tobacco Cessation:Counseling Given: Not Answered Alcohol Use Standard Drinks/Week Comments Not Currently 1 (1 standard drink = 0.6 oz pur e alcohol) once a month or two Comments Unknown Sex and Gender Information Value Date Recorded Sex Assigned at Not on file Legal Sex Female 8:36 PM PST Gender Identity Not on file Sexual Orientation [...] 01/10/2022 3:24 PM CDT Plan of Treatment Health Maintenance Due Date Last Done Comments Dental CBCT 02/17/2020 02/16/2017, 07/27/2012 Dental Oral Exam 07/14/2022 01/10/2022, 03/2021, 03/12/2019, Additional history exists Dental Prophylaxis 07/14/2022 01/10/2022, 0 10/26/2020, 03/12/2019, Additional history exists Dental X-Ray: Bitewings 07/14/2022 01/10/2022 Dental X-Ray: Full Mouth 01/11/2025 01/10/2022, 04/0 01/2021, 10/26/2020 Dental X-Ray: Panoramic 01/11/2025 01/11/20 22, 02/19/2018, 02/16/2017, Additional history exists Procedures Procedure Name Priority Date/Time Associated Diagnosis Comments PANORAMIC RADIOGRAPHIC IMAGE Routine 01/10/2022 3:00 PM CDT PROPHYLAXIS - ADULT Routine 01/10/2022 3 :00 PM CDT INTRAORAL - COMPREHENSIVE SERIES OF RADIOGRAPHIC IMAGES Routine 01/10/2022 3:00 PM CDT COMPREHENSIVE ORAL EVALUATION - NEW OR ESTABLISHED PATIENT Routine 01/10/2022 3:[address] CAPTURE AND INTERPRETATION WITH FIELD OF VIEW OF BOTH JAWS; WITH OR WITHOUT CRANIUM Routine 02/16/2017 2:00 AM CDT from Last 3 Months or Most Recently Relevant to Health Maintenance Insurance AET[employer] PPO
== END 2025-04-25 13:18 | disposition home or self-care (01) ==
LOC: ANHFOHIMG 13:20
PROVIDERS: PCP Internal Medicine; Visit Provider Obstetrics & Gynecology
DX: R92.8 Other abnormal and inconclusive findings on diagnostic imaging of breast (principal); N63.11 Unspecified lump in the right breast, upper outer quadrant
CPT/HCPCS: 76642; 77061; 77065; G0279

== ENCOUNTER 2025-05-13 08:22 | Outpatient (CLI) | payer OTHER, SELFPAY ==
--- NOTE | ~2025-05-13 | MMUS_ITS ---
PROCEDURE: US breast biopsy RT w image, MM stereotactic specimen RT, MM post biopsy diagnostic RT CLINICAL HISTORY: 59-year-old female with suspicious right breast mass containing calcifications at 12:00 position, presents for ultrasound-guided core needle biopsy procedure. COMPARISON: 04/25/2025 Following informed consent including risks, benefits, and possible complications, the patient was brought to the ultrasound suite. A time-out procedure was performed. A preliminary ultrasound of the right breast was performed, redemonstrating irregular shaped hypoechoic mass at 12:00, 3 cm from the nipple. The patient was prepped and draped in the usual sterile fashion. 1% lidocaine was instilled into the subcutaneous tissues. 1% lidocaine without epinephrine was injected into the deep tissues just inferior to the lesion. Approximately 15cc lidocaine was administered. A small skin stacia was made. Multiple core samples were obtained with a 13-gauge vacuum assisted biopsy needle. A post biopsy metal marker was placed at the biopsy site. Postprocedural mammogram of the right breast in craniocaudal and mediolateral projections reveal the post biopsy barrel HydroMark marker in good position. The patient tolerated the procedure well and was without immediate postprocedural complications. IMPRESSION: Successful ultrasound guided biopsy of right breast mass at 12:00 location. A post biopsy barrel HydroMark marker was placed at the biopsy site, which is seen on postprocedural mammogram. In addition, specimen radiograph obtained confirm presence of multiple foci of calcifications within the specimen. The patient tolerated the procedure well without immediate postprocedure complications. The patient was given postprocedural instructions and sent home in stable condition. Biopsies are pending Reviewed, dictated and finalized at location B. IMPRESSION: Successful ultrasound guided biopsy of right breast mass at 12:00 l ocation. A post biopsy barrel HydroMark marker was placed at the biopsy site, w hich is seen on postprocedural mammogram. In addition, specimen radiograph obta ined confirm presence of multiple foci of calcifications within the specimen. The patient tolerated the procedure well without immediate postprocedure compli cations. The patient was given postprocedural instructions and sent home in sta ble condition. Biopsies are pending IMPRESSION: Successful ultrasound guided biopsy of right breast mass at 12:00 l ocation. A post biopsy barrel HydroMark marker was placed at the biopsy site, w hich is seen on postprocedural mammogram. In addition, specimen radiograph obta ined confirm presence of multiple foci of calcifications within the specimen. The patient tolerated the procedure well without immediate postprocedure compli cations. The patient was given postprocedural instructions and sent home in sta ble condition. Biopsies are pending
--- OUTSIDE RECORDS SUMMARY | 2025-05-13 08:43 | XMS_ITS | Clinical Summary ---
Author Organization [facility] Address [facility] [place] [address] Care Team Providers Care Accounts Payable Lead Name Role Phone Gabino Ma MD Primary Care Provider [phone] Allergies Active Allergy Reactions Criticality Noted Date Comments Sulfamethoxazole-Trimethoprim Hives 2015 Topiramate Dizziness 11/27/2024 Medications estradiol (ESTRACE) 1 MG tablet Take 1 tablet (1 mg total) by mouth daily. 05/27/20 22 Active progesterone (PROMETRIUM) 200 MG capsule Take 1 capsule (200 mg total) by mouth daily. 05/24/20 22 Active latanoprost (XALATAN) 0.005 % ophthalmic solution Apply 1 drop to eye. 10/21/19 22 Active esomeprazole (NEXIUM) 40 MG capsuleIndications :Gastroesophageal reflux disease, unspecified whether esophagitis present Take 1 capsule (40 mg total) by mouth every morning before breakfast. 90 capsule 3 08/23/19 25 Active sucralfate (CARAFATE) 1 G tabletIndications: Gastroesophageal reflux disease without esophagitis TAKE 1 TABLET BY MOUTH TWICE DAILY ON AN EMPTY STOMACH NEEDED 120 tablet 4 08/23/19 25 Active Additional Information Patient taking differently: PRN, TAKE 1 TABLET BY MOUTH TWICE DAILY ON AN EMPTY STOMACH NEEDED, Reported on 12/03/2024 metoprolol succinate ER (TOPROL-XL) 25 MG 24 hr tabletIndications: Intractable migraine with aura with status migrainosus,Primar y hypertension Take 0.5 tablets (12.5 mg total) by mouth daily. 45 tablet 1 11/28/19 25 Active atogepant (QULIPTA) tabletIndications: Migraine without aura, not intractable, without status migrainosus Take 1 tablet (60 mg total) by mouth daily. 30 tablet 11 12/04/19 25 Active rimegepant (NURTEC) 75 MG disintegrating tabletIndications: Migraine without aura, not intractable, without status migrainosus Take 1 tablet (75 mg total) by mouth as needed. Max of 1 tablet (75 mg) in 24 hours. 16 tablet 11 12/04/19 25 Active Active Problems Problem Noted Date Diagnosed Date Multinodular goiter 11/16/2022 GERD (gastroesophageal reflux disease) 2 Mammographic microcalcification 05/21/2021 Migraine 05/21/2021 Premenstrual tension syndrome 05/21/2021 Encounters Date Type Department Care Team Description 04/29/2025 Telephone [facility] [address] [address] Howard Castellanos MD Orders 04/28/2025 Telephone [facility] [address] [place] [phone] Howard Castellanos MD Orders 04/25/2025 Scan HEALTH INFO SRVCS Scanned, [facility] Mammogram (SCAN) 03/18/2025 Scan HEALTH INFO SRVCS Scanned, Doc [facility] Mammogram (SCAN) from Last 3 Months Immunizations Immunization Administration Dates Next Due FLUCELVAX (ccIIV3, TRIVALENT, 0.5mL) 04/19/2024 Influenza (Generic) 08/11/2014,09/10/2012 Influenza Adult (Generic) 05/11/2023,05/28/2022 MODERNA COVID-19 BIVALENT (12+), MRNA, LNP-S, PF 06/14/2022 PFIZER COVID-19 BIVALENT (12 +) mRNA, LNP-S, PF, 30 MCG/0.3 ML DOSE 11/17/2020,10/27/2020 Pneumococcal (Prevnar 13) 08/21/2006 Td, Adsorbed, Preservative F ree, Adult Use, Lf Unspecified 08/21/2006 Tdap (Adacel) 09/13/2022 Family History Medical History Relation Comments Mental Health Daughter Autism Cancer Father Multiple myeloma Diabetes Mother Adult onset diab etes Heart Disease Mother Arteriosclerosis due to smoking Hypertension Mother Arthritis Sister 1 Arthritis Sister 2 Relation Status Comments Daughter Father Mother Sister 1 Sister 2 Social History Tobacco Use Types Packs/Day Years Used Date Smoking Tobacco: Never Smokeless Tobacco: Never Tobacco Cessation:Counseling Given: Yes Comments:counseled by Dr Ma Alcohol Use Standard Drinks/Week Comments Yes 1.7 (1 standard drin k = 0.6 oz pure alcohol) occasionally, maybe 2 glasses a month PHQ-2 Answer Date Recorded Patient Health Questionnaire-2 Score 0 10/23/2024 Comments No Sex and Gender Information Value Date Recorded Sex Assigned at Female 10/23/2024 2:32 PM UPHOLSTERER APPRENTICE Legal Sex Female 11:07 AM CDT Gender Identity Female 10/23/2024 2:32 PM UPHOLSTERER APPRENTICE Sexual Orientation Straight 10/23/2024 2: 32 PM UPHOLSTERER APPRENTICE Last Filed Vital Signs Vital Sign Reading Time Taken Comments Blood Pressure 144/84 12/03/2024 2:52 PM CDT Pulse 90 12/03/2024 2:04 PM CDT Temperature 36.9 C (98.5 F) 12/03/2024 2:04 PM CDT Respiratory Rate 16 12/03/2024 2:04 PM CDT Oxygen Saturation 100% 12/03/2024 2:04 PM CDT ra Inhaled Oxygen Concentration - - Weight 82.6 kg (182 lb) 12/03/2024 2:04 PM CDT Height 162.6 cm (5' 4) 12/03/2024 2:04 PM CDT Body Mass Index 31.24 12/03/2024 2:04 PM CDT Plan of Treatment Upcoming Encounters Date Type Department Care Team (Late st Contact Info) Description 06/04/2025 4:00 PM CDT Office Visit [facility] Medical Group Multispecialty Care - [address] [address] [address] [place] [address] Gabino Ma MD [address] [place] [address] 09/08/2025 2:40 PM UPHOLSTERER APPRENTICE Office Visit [facility] Medical Group Multispecialty Care - [facility] [address] [facility], [address] [place] [phone] Howard Castellanos MD [address] [place] [address] Health Maintenance Due Date Last Done Comments ASCVD Statin 1965 Pneumococcal Vaccine: 50+ Years (2 of 2 - PPSV23) 11/19/2013 08/21/2006 Zoster Vaccines (1 of 2) 11/19/2013 Cervical Cancer Screening Pap Smear (Age 30 to 64) Every 3 Years 03/04/2019 03/04/2016 RSV Immunization or 60+ Years (1 - Risk 60-74 years 1-dose series) 2023 Annual Physical 08/23/2025 08/23/2024, 06/15/2022 Cervical Cancer Screening Pap with HPV Testing (Age 30 to 64) Every 5 Years 12/28/2026 12/28/2021, 03/04/2016 Cervical Cancer Screening with HPV 12/28/2026 Mammogram Screening 04/25/2027 04/25/2025, 03/18/2025, 03/18/2025, Additional history exists Colorectal Cancer Screening Colonoscopy (10 Years) 03/08/2029 03/08/2019 DTaP, Tdap and Td Vaccines (2 - Td or Tdap) 09/13/2032 09/13/2022, 08/21/2006 Hepatitis C Completed 06/15/2022 COVID-19 Vaccine Completed 04/19/2024, , 06/14/2022, Additional history exists PHQ-2 (Physician [place]) Completed 10/23/2024 Meningococcal B Vaccine Aged Out No l onger eligible based on patient's age to complete this topic Meningococcal Vaccine Aged Out No giovana krupa eligible based on patient's age to complete this topic RSV Immunizations Under 20 Months Aged Out No longer eligible based on patient's age to complete this topic Procedures Procedure Name Priority Date/Time Associated Diagnosis Comments MAMMOGRAM GENERIC (SCAN ORDER) 04/25/2025 MAMMOGRAM GENERIC (SCAN ORDER) 03/18/2025 MG SCREENING W MIGUEL JANIE DIGI Routine 03/18/2025 12:00 AM CDT Encounter for screening mammogram for malignant neoplasm of breast HEPATITIS C ANTIBODY Routine 06/15/2022 12:04 PM CDT Annual physical exam Encounter for medical examination to establish care General medical exam Encounter for hepatitis C screening test for low risk patient OUTSIDE CYTOPATH CERV/VAG INTERPRET (PAP) 12/28/2021 COLONOSCOPY GENERIC (SCAN ORDER) 03/08/2019 from Last 3 Months or Most Recently Relevant to Health Maintenance Results * MAMMOGRAM GENERIC (SCAN ORDER) (04/25/2025) Only the most recent of2 resultswithin the time period is included. Anatomical Region Laterality Modality Other 04/25/2025 us [facility] Scanned SCANNING Final Resu lt * MG SCREENING W MIGUEL JANIE DIGI (03/18/2025 12:00 AM CDT) Anatomical Region Laterality Modality Breast Bilateral Mammography 03/18/2025 Gabino Ma MD MAMMO Final Result * HEPATITIS C ANTIBODY (06/15/2022 12:04 PM CDT) HEPATITIS C AB NON-REACTI VE NON-REACT CHILANGO 06/15/2022 9:52 PM CDT [facility] Comment: ANTIBODIES TO HCV NOT DETECTED. DOES NOT EXCLUDE THE POSSIBILITY OF EXPOSURE TO HCV. 06/15/2022 12:0 4 PM CDT us Gabino Ma MD LABORATORY Final Result [facility] [address] [place] [address], [id number] * PAP SMEAR WITH HPV (12/28/2021) 12/28/2021 us [facility] Scanned SCANNING Final Resu lt * COLONOSCOPY GENERIC (SCAN ORDER) (03/08/2019) 03/08/2019 us [facility] Scanned SCANNING Final Resu lt from Last 3 Months or Most Recently Relevant to Health Maintenance Insurance [employer] Care Teams Accounts Payable Lead Relationship Specialty Start Date End Date Gabino Ma MD [address] [facility] [address] [place] [address] PCP - General INTERNAL MEDICINE 06/15/22
--- OUTSIDE RECORDS SUMMARY | 2025-05-13 08:43 | XMS_ITS | Clinical Summary ---
Author Organization [facility] Address [address], [facility] [address] [place] [address] Phone Care Team Providers Care Dsp Engineer Name Role Phone Gabino Ma MD Primary Care Provider [phone] Allergies Active Allergy Reactions Criticality Noted Date Comments Sulfamethoxazole-Trimethop rim Hives 03/04/2016 *Anti-infective Agents [place] [facility] Medications latanoprost (XALATAN) 0.005 % Solution 09/30/2022 [...] (CALTRATE 600+D PO) Take by mouth. Active [place]-3 Fatty Acids (OMEGA-3 FISH OIL PO) Take [...] on file Legal Sex Female 1:51 PM SEWAGE TREATMENT PLANT OPERATOR Gender Identity Not on file Sexual Orientation Not on file Last Filed Vital Signs Vital Sign Reading Time Taken Comments Blood Pressure 132/90 10/24/2022 1:00 PM SEWAGE TREATMENT PLANT OPERATOR Pulse 90 10/24/2022 1:00 PM SEWAGE TREATMENT PLANT OPERATOR Temperature 36.8 C (98.2 F) 10/24/2022 1:00 PM SEWAGE TREATMENT PLANT OPERATOR Respiratory Rate 18 10/24/2022 1:00 PM SEWAGE TREATMENT PLANT OPERATOR Oxygen Saturation 98% 10/24/2022 1:00 PM SEWAGE TREATMENT PLANT OPERATOR Inhaled Oxygen Concentration - - Weight 81.8 kg (180 lb 4.8 oz) 10/24/2022 1:00 P M SEWAGE TREATMENT PLANT OPERATOR Height 162.6 cm (5' 4) 10/24/2022 1:00 PM SEWAGE TREATMENT PLANT OPERATOR Body Mass Index 30.95 10/24/2022 1:00 PM SEWAGE TREATMENT PLANT OPERATOR Plan of Treatment Health Maintenance Due Date [...] this topic Insurance [employer]ET[employer] SOI Care Teams Dsp Engineer Relationship Specialty Start Date End Date Gabino Ma MD [address] [facility] [address] [place] [address] PCP - General Internal Medicine 10/17/22
--- OUTSIDE RECORDS SUMMARY | 2025-05-13 08:43 | XMS_ITS | Clinical Summary ---
Author Organization [facility] Address [address] [place] [address] Care Team Providers Care Heel Sprayer Name Role Phone Unavailable Primary Care Provider Unavailabl e Source Comments [facility],non-owned Affiliates and Associated Physician Practices is amultiple site organization consisting of ambulatory clinics and hospital sitesin [place], [place], [place] and [place]. This disclosure is being madepursuant to the Care Everywhere program and may not contain all information available regarding this patient. Last updated 18.[facility] Allergies Active Allergy Reactions Criticality Noted Date [...] on file Legal Sex Female 7:16 AM NEWSPAPER CARRIER Gender Identity Not on file Sexual Orientation [...] 11/19/2013 ZOSTER VACCINE (1 of 2) 11/19/2013 DEPRESSION SCREENING 08/21/2024 COVID-19 VACCINE (4 - 2024-2 6 season) 2025 06/14/2022, 11/17/2020, 10/27/2020 INFLUENZA VACCINE (#1) 2025 , 08/11/2014, 09/10/2012 [...]
--- OUTSIDE RECORDS SUMMARY | 2025-05-13 08:43 | XMS_ITS | Encounter Summary ---
Author Organization [facility] Address [address] [place] [address] Care Team Providers Care Wrapper Leaf Inspector Name Role Phone Gabino Ma MD Primary Care Provider [phone] Encounter Details Date Type Department Care Team (Late st Contact Info) Description 10/13/2022 eegoest Message Enc [facility] Medical Group Multispecialty Care - [address] [address] [address] [place], [place] [phone] Gabino Ma MD [address] [place] [address] [address] [place], [place] [phone] Biopsy Social History Tobacco Use Types Packs/Day Years Used Date Smoking Tobacco: Never Smokeless Tobacco: Never Comments:counseled by Dr Odilia holland Alcohol Use Standard Drinks/Week Comments Yes 3.3 (1 standard drink = 0.6 oz p ure alcohol) Monthly PHQ-2 Answer Date Recorded PHQ-2 Score - If the patient scores above 3, please move on to questions 3-9 0 06/15/2022 Comments No Sex and Gender Information Value Date Recorded Sex Assigned at Female 10/23/2024 2:32 PM UNDERWATER PHOTOGRAPHER Legal Sex Female 11:07 AM CDT Gender Identity Female 10/23/2024 2:32 PM UNDERWATER PHOTOGRAPHER Sexual Orientation Straight 10/23/2024 2: 32 PM UNDERWATER PHOTOGRAPHER COVID-19 Exposure Response Date Recorded In the last 10 days, have yo u been in contact with someone who was confirmed or suspected to have Coronavirus/COVID-19? No / Unsure 10/14/2022 2:36 PM UNDERWATER PHOTOGRAPHER documented as of this encounter Plan of Treatment Upcoming Encounters Date Type Department Care Team (Late st Contact Info) Description 06/04/2025 4:00 PM CDT Office Visit [facility] Multispecialty Care - [address] [place] [address] Gabino Ma MD [address] [address] 09/08/2025 2:40 PM UNDERWATER PHOTOGRAPHER [facility] [place] [facility] [address] [facility], [address] [place] [phone] Howard Castellanos MD 3 [place] [address] documented as of this encounter Visit Diagnoses Not on filedocumented in this encounter Care Teams Wrapper Leaf Inspector Relationship Specialty Start Date End Date Gabino Ma MD [address] [address] PCP - General INTERNAL MEDICINE 06/15/22 documented as of this encounter
--- OUTSIDE RECORDS SUMMARY | 2025-05-13 08:43 | XMS_ITS | Encounter Summary ---
Author Organization [facility] Address [address] [place] [address] Care Team Providers Care Mental Retardation Nurse Name Role Phone Gabino Ma MD Primary Care Provider [phone] Encounter Details Date Type Department Care Team (Late Contact Info) Description 08/12/2022 [employer] Message Enc [address] [place], [place] [phone] [employer], [facility] Provider US results Social History Tobacco Use Types Packs/Day Years [...] Sex Assigned at Female 10/23/2024 2:32 PM DONOR SERVICES TEAM LEADER Legal Sex Female 11:07 AM CDT Gender Identity Female 10/23/2024 2:32 PM DONOR SERVICES TEAM LEADER Sexual Orientation Straight 10/23/2024 2: 32 PM DONOR SERVICES TEAM LEADER COVID-19 Exposure Response Date Recorded In the last 10 days, have yo u been in contact with someone who was confirmed or suspected to have Coronavirus/COVID-19? No / Unsure 08/10/2022 7:25 AM DONOR SERVICES TEAM LEADER documented as of this encounter Plan of Treatment Upcoming Encounters Date Type Department Care Team (Late Contact Info) Description 06/04/2025 4:00 PM CDT [facility] [address] [place] [address] Gabino Ma MD [address] [address] 09/08/2025 2:40 PM DONOR SERVICES TEAM LEADER Office Visit [facility] Medical Group Multispecialty Care - [facility] [address] [facility], [address] [place] [address] Howard Castellanos MD 3 [place] [address] documented as of this encounter Visit Diagnoses Not on filedocumented in this encounter Care Teams Mental Retardation Nurse Relationship Specialty Start Date End Date Gabino Ma MD [facility] [address] [address] PCP - General INTERNAL MEDICINE 06/15/22 documented as of this encounter
--- OUTSIDE RECORDS SUMMARY | 2025-05-13 08:43 | XMS_ITS | Encounter Summary ---
Author Organization [facility] Address [address] [place] [address] Care Team Providers Care Head Swamper Name Role Phone Gabino Ma MD Primary Care Provider [phone] Encounter Details Date Type Department Care Team (Late Contact Info) Description 10/17/2022 [employer] Message Enc [address] [place], [place] [phone] [facility], [facility] Provider US result Social History Tobacco Use Types Packs/Day Years [...] Sex Assigned at Female 10/23/2024 2:32 PM WETLANDS CONSERVATION LABORER Legal Sex Female 11:07 AM CDT Gender Identity Female 10/23/2024 2:32 PM WETLANDS CONSERVATION LABORER Sexual Orientation Straight 10/23/2024 2: 32 PM WETLANDS CONSERVATION LABORER COVID-19 Exposure Response Date Recorded In the last 10 days, have yo u been in contact with someone who was confirmed or suspected to have Coronavirus/COVID-19? No / Unsure 10/14/2022 2:36 PM WETLANDS CONSERVATION LABORER documented as of this encounter Plan of Treatment Upcoming Encounters Date Type Department Care Team (Late Contact Info) Description 06/04/2025 4:00 PM CDT [facility] [address] [place] [address] Gabino Ma MD [address] [address] 09/08/2025 2:40 PM WETLANDS CONSERVATION LABORER Office Visit [facility] Medical Group Multispecialty Care - [facility] [address] [facility], [address] [place] [address] Howard Castellanos MD 3 [place] [address] documented as of this encounter Visit Diagnoses Not on filedocumented in this encounter Care Teams Head Swamper Relationship Specialty Start Date End Date Gabino Ma MD [facility] [address] [address] PCP - General INTERNAL MEDICINE 06/15/22 documented as of this encounter
--- OUTSIDE RECORDS SUMMARY | 2025-05-13 08:43 | XMS_ITS | Encounter Summary ---
Author Organization [facility] Address [address] [place] [address] Care Team Providers Care Metal Furniture Polisher Name Role Phone Gabino Ma MD Primary Care Provider [phone] Encounter Details Date Type Department Care Team (Late Contact Info) Description 03/08/2023 [employer] Message Enc [facility] Medical [facility] Diabetes and Endocrinology - [place] [address] [facility] [place] [address] [place] [address] [place] [address] [address] Thyroid sequence test result Social History Tobacco Use Types Packs/Day Years Used Date Smoking Tobacco: Never Smokeless Tobacco: Never Comments:counseled by Dr Odilia holland Alcohol Use Standard Drinks/Week Comments Yes 3.3 (1 standard drink = 0.6 oz p ure alcohol) Monthly PHQ-2 Answer Date Recorded Patient Health Questionnaire-2 Score 0 11/16/2022 Comments No Sex and Gender Information Value Date Recorded Sex Assigned at Female 10/23/2024 2:32 PM LAMP SHADES SUPERVISOR Legal Sex Female 11:07 AM CDT Gender Identity Female 10/23/2024 2:32 PM LAMP SHADES SUPERVISOR Sexual Orientation Straight 10/23/2024 2: 32 PM LAMP SHADES SUPERVISOR documented as of this encounter Plan of Treatment Upcoming Encounters Date Type Department Care Team (Late Contact Info) Description 06/04/2025 4:00 PM CDT Office Visit [facility] Medical Group Multispecialty Care - [address] [place], [place] [phone] Gabino Ma MD [address] [facility] [address] [place] [address] 09/08/2025 2:40 PM LAMP SHADES SUPERVISOR Office Visit [facility] Medical Group Multispecialty Care - [facility] 3 [facility], [address] [place] [phone] Howard Castellanos MD 3 [place] [address] documented as of this encounter Visit Diagnoses Not on filedocumented in this encounter Care Teams Metal Furniture Polisher Relationship Specialty Start Date End Date Gabino Ma MD [address] [address] PCP - General INTERNAL MEDICINE 06/15/22 documented as of this encounter
--- OUTSIDE RECORDS SUMMARY | 2025-05-13 08:43 | XMS_ITS | Encounter Summary ---
Author Organization [facility] Address [address] [place] [address] Care Team Providers Care Beverage Host Name Role Phone Gabino Ma MD Primary Care Provider [phone] Encounter Details Date Type Department Care Team (Late Contact Info) Description 10/20/2022 Marin [employer] Message Enc [employer] [facility] INFO [facility] [place], [facility] Provider RE: Patient Amendment Request Social History Tobacco Use Types Packs/Day Years [...] Sex Assigned at Female 10/23/2024 2:32 PM CLOTH ROLL WINDER Legal Sex Female 11:07 AM CDT Gender Identity Female 10/23/2024 2:32 PM CLOTH ROLL WINDER Sexual Orientation Straight 10/23/2024 2: 32 PM CLOTH ROLL WINDER COVID-19 Exposure Response Date Recorded In the last 10 days, have yo u been in contact with someone who was confirmed or suspected to have Coronavirus/COVID-19? No / Unsure 10/14/2022 2:36 PM CLOTH ROLL WINDER documented as of this encounter Plan of Treatment Upcoming Encounters Date Type Department Care Team (Late Contact Info) Description 06/04/2025 4:00 PM CDT Office Visit [facility] - [address] [place] [address] Gabino Ma MD [address] [facility] [address] [place] [address] 09/08/2025 2:40 PM CLOTH ROLL WINDER Office Visit [facility] - [facility] [address] [facility], [address] [place] [id number] Howard Castellanos MD 3 [place] [address] documented as of this encounter Visit Diagnoses Not on filedocumented in this encounter Care Teams Beverage Host Relationship Specialty Start Date End Date Gabino Ma MD 118[address] [facility] [address] [place] [address] PCP - General INTERNAL MEDICINE 06/15/22 documented as of this encounter
--- OUTSIDE RECORDS SUMMARY | 2025-05-13 08:43 | XMS_ITS | Encounter Summary ---
Author Organization [facility] Address [address] [place] [address] Care Team Providers Care Aegis Console Operator Track Name Role Phone Gabino Ma MD Primary Care Provider [phone] Encounter Details Date Type Department Care Team (Late Contact Info) Description 09/14/2022 Feedtrace Message Enc [address] [place], [place] [id number] [facility], [facility] Provider Lab results Social History Tobacco Use Types Packs/Day [...] Sex Assigned at Female 10/23/2024 2:32 PM OPERATING ROOM SURGICAL TECHNOLOGIST Legal Sex Female 11:07 AM CDT Gender Identity Female 10/23/2024 2:32 PM OPERATING ROOM SURGICAL TECHNOLOGIST Sexual Orientation Straight 10/23/2024 2: 32 PM OPERATING ROOM SURGICAL TECHNOLOGIST COVID-19 Exposure Response Date Recorded In the last 10 days, have yo u been in contact with someone who was confirmed or suspected to have Coronavirus/COVID-19? No / Unsure 09/13/2022 10:44 AM OPERATING ROOM SURGICAL TECHNOLOGIST documented as of this encounter Plan of Treatment Upcoming Encounters Date Type Department Care Team (Late Contact Info) Description 06/04/2025 4:00 PM CDT [facility] [address] [place] [address] Gabino Ma MD [address] [address] 09/08/2025 2:40 PM OPERATING ROOM SURGICAL TECHNOLOGIST Office Visit [facility] Multispecialty Care - [facility] [address] [facility], [address] [place] [address] Howard Castellanos MD 3 [place] [address] documented as of this encounter Visit Diagnoses Not on filedocumented in this encounter Care Teams Aegis Console Operator Track Relationship Specialty Start Date End Date Gabino Ma MD [facility] [address] PCP - General INTERNAL MEDICINE 06/15/22 documented as of this encounter
--- NOTE | 2025-05-13 10:22 | S_PTH ---
PATIENT: Jayleen Muniz LOC: [facility] U#:[id number] AGE/SX: 59/F ROOM: RE05/13/[address]: Jayne Mcgowan MD : [id number] BED: DIS: 05/13/2025 SPEC #: [id number] RECD: 05/13/25 12:04 STATUS: TAYLOR BASS #: [id number] POLY: 05/13/25 10:[address]: Jayne Mcgowan DEPT: [facility] Surgical RECD BY: Mohit Perdomo ENTERED: 05/13/25 12:04 SP TYPE: Surgical OTHR DR: Gabino Ma, Tissues: A - Breast Biopsy B - Breast Biopsy Procedures: P63 Hematoxylin and Eosin Stain Gross and Microscopic Level 4 ER-60 MI-60 MIB-60 HER 2-60 CK 5
== END 2025-05-13 08:23 | disposition home or self-care (01) ==
PROVIDERS: PCP Internal Medicine; Visit Provider Surgery
DX: R92.8 Other abnormal and inconclusive findings on diagnostic imaging of breast (principal); D05.11 Intraductal carcinoma in situ of right breast
CPT/HCPCS: 19083; 77065; 88305; 88342; 88360

== ENCOUNTER 2025-05-26 08:22 | Outpatient (CLI) | payer OTHER, SELFPAY ==
--- NOTE | ~2025-05-26 | MMUS_ITS ---
EXAMINATION: US_MAGSEEDRT_US, MM post biopsy diagnostic RT CLINICAL HISTORY: 59 year old female with biopsy-proven RIGHT breast Malignant lesion containing metallic clip diagnosed at Ultrasound-guided core needle biopsy on 05/13/2025. Patient presents for ultrasound guided Magseed localization of the clip within the Malignant lesion in the 12:00 location right breast. After informed consent was obtained, the patient was brought into the ultrasound room. A time-out procedure was performed. Preliminary images of the right breast were obtained to localize the target. A needle was then placed into the breast and ultrasound images were obtained to confirm position of the needle. The Magseed clip deployed immediately adjacent to the biopsy clip. Postprocedure mammogram of the right breast showed the Magseed in good position. IMPRESSION: Successful ultrasound-guided Magseed localization of right breast cancer. The patient tolerated the procedure well with no immediate post procedure complications. Reviewed, dictated and finalized at location B. IMPRESSION: Successful ultrasound-guided Magseed localization of right breast c ancer. The patient tolerated the procedure well with no immediate post procedu re complications.
--- OUTSIDE RECORDS SUMMARY | 2025-05-26 08:44 | XMS_ITS | Clinical Summary ---
Author Organization [facility] Address [address], [facility] [address] [place] [address] Phone Care Team Providers Care Easement Man Name Role Phone Gabino Ma MD Primary Care Provider [phone] Allergies Active Allergy Reactions Criticality Noted Date Comments Sulfamethoxazole-Trimethop rim Hives 03/04/2016 *Anti-infective Agents - [facility]. Medications latanoprost (XALATAN) 0.005 % Solution 09/30/2022 [...] (CALTRATE 600+D PO) Take by mouth. Active [place]-3 Fatty Acids (OMEGA-3 FISH OIL PO) Take [...] on file Legal Sex Female 1:51 PM PEGGER DOBBY LOOMS Gender Identity Not on file Sexual Orientation Not on file Last Filed Vital Signs Vital Sign Reading Time Taken Comments Blood Pressure 132/90 10/24/2022 1:00 PM PEGGER DOBBY LOOMS Pulse 90 10/24/2022 1:00 PM PEGGER DOBBY LOOMS Temperature 36.8 C (98.2 F) 10/24/2022 1:00 PM PEGGER DOBBY LOOMS Respiratory Rate 18 10/24/2022 1:00 PM PEGGER DOBBY LOOMS Oxygen Saturation 98% 10/24/2022 1:00 PM PEGGER DOBBY LOOMS Inhaled Oxygen Concentration - - Weight 81.8 kg (180 lb 4.8 oz) 10/24/2022 1:00 P M PEGGER DOBBY LOOMS Height 162.6 cm (5' 4) 10/24/2022 1:00 PM PEGGER DOBBY LOOMS Body Mass Index 30.95 10/24/2022 1:00 PM PEGGER DOBBY LOOMS Plan of Treatment Health Maintenance Due Date [...] this topic Insurance AETNA SOI Care Teams Easement Man Relationship Specialty Start Date End Date Gabino Ma MD [address] [facility] [address] [place] [address] PCP - General Internal Medicine 10/17/22
--- OUTSIDE RECORDS SUMMARY | 2025-05-26 08:44 | XMS_ITS | Encounter Summary ---
Author Organization [facility] Address [address] [place] [address] Care Team Providers Care Location Director Name Role Phone Unavailable Primary Care Provider Unavailabl e Prior Encounters Date Type Department Care Team Description 01/10/2022 Travel 01/10/2022 3:00 PM CDT Office Visit [facility] [address] [place] [address] Anahi Cast DDS 02/23/2021 Travel 02/23/2021 10:00 AM CDT Office Visit [facility] [address] [place] [address] Kanchan Butler DMD 09/09/2019 Converted 13x Documents [facility] [address], [address] [place] [id number] <No scans attached> 09/09/2019 Converted CPS Chart Documents [facility] [facility] [address] [place] [address] <No scans attached> 09/09/2019 Converted CPS Chart Documents [facility] [address] [place] [address] <No scans attached> 09/09/2019 Converted 13x Documents [facility] [facility] [address] [place] [address] <No scans attached> 09/09/2019 Converted 13x Documents [facility] [address] [place] [address] <No scans attached> Last Filed Vital [...] O AMALGAM 1 SURFACE Routine 2:00 AM EXCEPTIONAL CHILDREN TEACHER 12 O AMALGAM 1 SURFACE Routine 2:00 AM EXCEPTIONAL CHILDREN TEACHER OCCLUSAL GUARD HARD APPLIANCE, FULL ARCH Routine 10/26/2020 2:00 AM EXCEPTIONAL CHILDREN TEACHER 13 CORE BUILDUP, INCLUDING ANY PINS WHEN REQUIRED Routine 10/26/2020 2:00 AM EXCEPTIONAL CHILDREN TEACHER 13 CEMENT CROWN Routine 10/26/2020 2:00 AM EXCEPTIONAL CHILDREN TEACHER ORAL HYGIENE INSTRUCTIONS Routine 2020 2:00 AM EXCEPTIONAL CHILDREN TEACHER 13 CERECFIRED CROWNPOST Routine 10/27/19 2:00 AM EXCEPTIONAL CHILDREN TEACHER PERIODIC ORAL EVALUATION - ESTABLISHED PATIENT Routine 10/26/2020 2:00 AM EXCEPTIONAL CHILDREN TEACHER INTRAORAL - COMPREHENSIVE SERIES OF RADIOGRAPHIC IMAGES Routine 10/26/2020 2:00 AM EXCEPTIONAL CHILDREN TEACHER ADDITIONAL X-RAY Routine 10/26/2020 2:00 AM EXCEPTIONAL CHILDREN TEACHER PROPHYLAXIS - ADULT Routine 10/26/2020 2 :00 AM EXCEPTIONAL CHILDREN TEACHER INTRAORAL PHOTO Routine 10/26/2020 2:00 AM EXCEPTIONAL CHILDREN TEACHER INTRAORAL PHOTO Routine 10/26/2020 2:00 AM EXCEPTIONAL CHILDREN TEACHER INTRAORAL PHOTO Routine 10/26/2020 2:00 AM EXCEPTIONAL CHILDREN TEACHER INTRAORAL PHOTO Routine 10/26/2020 2:00 AM EXCEPTIONAL CHILDREN TEACHER ORAL HYGIENE INSTRUCTIONS Routine 2018 2:00 AM [...] ORAL HYGIENE INSTRUCTIONS Routine 2018 2:00 AM EXCEPTIONAL CHILDREN TEACHER TOPICAL APPLICATION OF FLUORIDE VARNISH Routine 09/04/2018 2:00 AM EXCEPTIONAL CHILDREN TEACHER PROPHYLAXIS - ADULT Routine 09/04/2018 2 :00 AM EXCEPTIONAL CHILDREN TEACHER PERIODIC ORAL EVALUATION - ESTABLISHED PATIENT Routine 09/04/2018 2:00 AM EXCEPTIONAL CHILDREN TEACHER COMPREHENSIVE ORAL EVALUATION - NEW OR ESTABLISHED [...] 3 CEMENT CROWN Routine 08/20/2015 2:00 AM EXCEPTIONAL CHILDREN TEACHER 3 CERECFIRED CROWNPOST Routine 5 2:00 AM EXCEPTIONAL CHILDREN TEACHER SINGLE X-RAY Routine 08/20/2015 2:00 AM EXCEPTIONAL CHILDREN TEACHER ORAL HYGIENE INSTRUCTIONS Routine 2014 2:00 AM EXCEPTIONAL CHILDREN TEACHER TOPICAL APPLICATION OF FLUORIDE VARNISH Routine 08/17/2015 2:00 AM EXCEPTIONAL CHILDREN TEACHER PROPHYLAXIS - ADULT Routine 08/17/2015 2 :00 AM EXCEPTIONAL CHILDREN TEACHER PERIODIC ORAL EVALUATION - ESTABLISHED PATIENT Routine 08/17/2015 2:00 AM EXCEPTIONAL CHILDREN TEACHER BITEWINGS - FOUR RADIOGRAPHIC IMAGES Routine 08/17/2015 2:00 AM EXCEPTIONAL CHILDREN TEACHER ADDITIONAL X-RAY Routine 08/17/2015 2:00 AM EXCEPTIONAL CHILDREN TEACHER ADDITIONAL X-RAY Routine 08/17/2015 2:00 AM EXCEPTIONAL CHILDREN TEACHER ADDITIONAL X-RAY Routine 08/17/2015 2:00 AM EXCEPTIONAL CHILDREN TEACHER ADDITIONAL X-RAY Routine 08/17/2015 2:00 AM EXCEPTIONAL CHILDREN TEACHER ADDITIONAL X-RAY Routine 08/17/2015 2:00 AM EXCEPTIONAL CHILDREN TEACHER SINGLE X-RAY Routine 08/17/2015 2:00 AM EXCEPTIONAL CHILDREN TEACHER INTRAORAL PHOTO Routine 08/17/2015 2:00 AM EXCEPTIONAL CHILDREN TEACHER ORAL HYGIENE INSTRUCTIONS Routine 2013 2:00 AM EXCEPTIONAL CHILDREN TEACHER TOPICAL APPLICATION OF FLUORIDE VARNISH Routine 08/13/2014 2:00 AM EXCEPTIONAL CHILDREN TEACHER PROPHYLAXIS - ADULT Routine 08/13/2014 2 :00 AM EXCEPTIONAL CHILDREN TEACHER PERIODIC ORAL EVALUATION - ESTABLISHED PATIENT Routine 08/13/2014 2:00 AM EXCEPTIONAL CHILDREN TEACHER CANCELLED APPOINTMENT Routine 07/05/2013 2:00 AM EXCEPTIONAL CHILDREN TEACHER PROPHYLAXIS - ADULT Routine 06/06/2013 2 :00 AM CDT PERIODIC ORAL EVALUATION - ESTABLISHED PATIENT Routine 06/06/2013 2:00 AM CDT 5 MO COMPOSITE FILLING Routine 3 2:00 AM CDT PROPHYLAXIS - ADULT Routine 12/03/2012 2 :00 AM CDT PERIODIC ORAL EVALUATION - ESTABLISHED PATIENT Routine 12/03/2012 2:00 AM CDT 19 LIMITED ORAL EVALUATION - PROBLEM FOCUSED Routine 08/22/2012 2:00 AM EXCEPTIONAL CHILDREN TEACHER 18 LIMITED ORAL EVALUATION - PROBLEM FOCUSED Routine 08/22/2012 2:00 AM EXCEPTIONAL CHILDREN TEACHER 30 CEMENT CROWN Routine 08/08/2012 2:00 AM EXCEPTIONAL CHILDREN TEACHER 30 CERECFIRED CROWNPOST Routine 08/08/20 12 2:00 AM EXCEPTIONAL CHILDREN TEACHER 19 CEMENT CROWN Routine 08/02/2012 2:00 AM EXCEPTIONAL CHILDREN TEACHER 18 CEMENT CROWN Routine 08/02/2012 2:00 AM EXCEPTIONAL CHILDREN TEACHER 19 CERECFIRED CROWNPOST Routine 08/02/20 12 2:00 AM EXCEPTIONAL CHILDREN TEACHER 18 CERECFIRED CROWNPOST Routine 08/02/20 12 2:00 AM EXCEPTIONAL CHILDREN TEACHER SINGLE X-RAY Routine 08/02/2012 2:00 AM EXCEPTIONAL CHILDREN TEACHER 19 DOBL AMALGAM 4+ SURFACE Routine 07/27 2:00 AM EXCEPTIONAL CHILDREN TEACHER 30 AMALGAM 3 SURFACE Routine 012 2:00 AM EXCEPTIONAL CHILDREN TEACHER 15 DOL AMALGAM 3 SURFACE Routine 012 2:00 AM EXCEPTIONAL CHILDREN TEACHER 14 MOL AMALGAM 3 SURFACE Routine 012 2:00 AM EXCEPTIONAL CHILDREN TEACHER 18 ELIZABETH AMALGAM 2 SURFACE Routine 07/27/20 12 2:00 AM EXCEPTIONAL CHILDREN TEACHER 29 O AMALGAM 1 SURFACE Routine 2 2:00 AM EXCEPTIONAL CHILDREN TEACHER 13 O AMALGAM 1 SURFACE Routine 2 2:00 AM EXCEPTIONAL CHILDREN TEACHER 12 O AMALGAM 1 SURFACE Routine 2 2:00 AM EXCEPTIONAL CHILDREN TEACHER 4 O AMALGAM 1 SURFACE Routine 07/27/2012 2:00 AM EXCEPTIONAL CHILDREN TEACHER 2 O AMALGAM 1 SURFACE Routine 07/27/2012 2:00 AM EXCEPTIONAL CHILDREN TEACHER COMPREHENSIVE ORAL EVALUATION - NEW OR ESTABLISHED PATIENT Routine 07/27/2012 2:00 AM EXCEPTIONAL CHILDREN TEACHER PANORAMIC RADIOGRAPHIC IMAGE Routine 07/27/2012 2:00 AM EXCEPTIONAL CHILDREN TEACHER [place] CT CAPTURE AND INTERPRETATION WITH FIELD OF VIEW OF BOTH JAWS; WITH OR WITHOUT CRANIUM Routine 07/27/2012 2:00 AM EXCEPTIONAL CHILDREN TEACHER BITEWINGS - FOUR RADIOGRAPHIC IMAGES Routine 07/27/2012 2:00 AM EXCEPTIONAL CHILDREN TEACHER BITEWINGS - FOUR RADIOGRAPHIC IMAGES Routine 07/27/2012 2:00 AM EXCEPTIONAL CHILDREN TEACHER INTRAORAL PHOTO Routine 07/27/2012 2:00 AM EXCEPTIONAL CHILDREN TEACHER INTRAORAL PHOTO Routine 07/27/2012 2:00 AM EXCEPTIONAL CHILDREN TEACHER 3 LO COMPOSITE FILLING Routine 2 2:00 AM EXCEPTIONAL CHILDREN TEACHER 3 MO COMPOSITE FILLING Routine 2 2:00 AM EXCEPTIONAL CHILDREN TEACHER Visit Diagnoses Not on file Insurance [facility]
--- OUTSIDE RECORDS SUMMARY | 2025-05-26 08:44 | XMS_ITS | Clinical Summary ---
Author Organization [facility] Health Address [address] [place] [address] Care Team Providers Care Channel Process Supervisor Name Role Phone Unavailable Primary Care Provider [...]
--- OUTSIDE RECORDS SUMMARY | 2025-05-26 08:44 | XMS_ITS | Clinical Summary ---
Author Organization [facility] Address [address] [place] [address] Care Team Providers Care Hoop Flaring Machine Operator Helper Name Role Phone Unavailable Primary Care Provider Unavailabl e Source Comments [facility],non-owned Affiliates and Associated Physician Practices is amultiple site organization consisting of ambulatory clinics and hospital sitesin [place], [place], [place] and [place]. This disclosure is being madepursuant to the Care Everywhere program and may not contain all information available regarding this patient. 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
== END 2025-05-26 08:23 | disposition home or self-care (01) ==
LOC: ANHFOHIMG 08:24
PROVIDERS: Visit Provider Surgery
DX: D05.11 Intraductal carcinoma in situ of right breast (principal); Z98.82 Breast implant status
CPT/HCPCS: 19285; 77065; A4648

== ENCOUNTER 2025-06-18 01:53 | Day surgery (SDC) | payer OTHER, SELFPAY ==
--- NOTE | 2025-06-05 16:29 | SUR.PREOP ---
[facility] has started construction of its new state of the art ER which will open Spring 2026. With this, we anticipate parking may be a challenge for some our surgical patients and families. Parking spaces are limited but are available for all Surgical, obstetrics, and ER patients sharing this lot. If you arrive and find you are having a hard time finding a parking space, please note that we understand the challenges, please drive around the hospital and park near Hospital Entrance 1. When you enter this entrance, you can ask a volunteer to direct or take you back to the surgical waiting area to check in. We appreciate everyone?s understanding of these expected challenges while we build for your future. Report to the Outpatient Waiting Room, entrance under the green pavilion located off [address], at time _6am_ on date _06/18/25__. Planned Procedure Time: _730am___.? Time changes happen often and if your time is changed the preop area will call you the afternoon before. - You and your visitor will be asked to self-screen and do not enter if you have any COVID symptoms. Please call surgeon if you need to reschedule. - A mask is optional within the hospital at this time. Patients may have clear liquids (water, carbonated beverages, clear teas, apple juice) until 3 hours prior to surgery with a maximum of 20 ounces. - No food from midnight until time of surgery and no smoking, or chewing tobacco (or any form of nicotine). No chewing gum, candy or mints. Take only the following medications with a SIP of water on the morning of surgery: __None___ DO NOT STOP ANY OF YOUR OTHER PRESCRIPTION MEDICATIONS PRIOR TO SURGERY EXCEPT THE FOLLOWING Hold all vitamins and supplements for 3 days per anesthesiologist. Medications to discontinue per physician ___none___ Date to take last dose__06/14/25____ Please no make-up, nail [place] citizen, hairspray, perfume, deodorant, or body powder the day of surgery.? No jewelry (including any body piercings) or valuables the day of surgery, leave them at home.? Please take a shower or bath the night before, or the morning of, surgery with an antibacterial soap.? Wear comfortable, loose fitting clothing.? - Jewelry must be removed prior to entering the operating room.? Rings and piercings that are not removed may be cut off. - The hospital will not accept responsibility for valuables.? - Please leave all valuables, including medications, at home the day of surgery. If you are going home after surgery, a licensed clamp truck driver must drive you home.? - NO public transportation without another adult if you receive anesthesia. - We recommend that an adult stay with you for 24 hours following discharge. - We also recommend that you do not drive, make important decision, drink alcoholic beverages, or take any drugs that were not prescribed by your health care provider for at least 24 hours after your discharge time. Follow any additional instructions given to you from your surgeon. Telephone instructions given to and asked if any additional questions and then verbalized understanding. Patient advised to call surgeon office or pre surgery nurse liaison [phone] if any additional questions.
[2025-06-05 16:33] VITALS: BMI 30.9
--- NOTE | ~2025-06-18 | MM_ITS ---
MM_FAXITRON_MG 07/16/2025 08:12 Indication: Ductal carcinoma in situ. Procedure: Single surgical mammography specimen Comparison: 05/26/2025 Findings: Specimen contains tissue marker and magseed device. Please refer to procedural report for details. Impression: 1: Surgical specimen contains tissue marker and magseed device. Reviewed, dictated and finalized at location O. ENGINEER Impression: 1: Surgical specimen contains tissue marker and magseed device.
[2025-06-18 06:35] VITALS: BP 138/78; PULSE 100; RESP 18; TEMP 36.3; O2SAT 100
[2025-06-18] MEDS: ACETAMINOPHEN 500 MG TABLET 1000 MG PO (06:48)
[2025-06-18] MEDS: LACTATED RINGERS 1,000 ML 30 ML IV CONT (06:50)
--- NOTE | 2025-06-18 07:05 | WPDHPUPDATE1 ---
History and Physical Update Update Date/Time: 06/18/25 07:05 - Right breast lumpectomy with Mag seed localization, possible adjacent tissue transfer. History and Physical has been reviewed, including an updated exam of the patient. There are NO changes in the patient's condition. Risks, benefits, and alternatives have been discussed and questions answered. Patient agrees to proceed with procedure.
--- NOTE | 2025-06-18 07:20 | WPDANESEPPF ---
Anes - Initial Pre Proc Eval Procedure: Operation Date: 06/18/25 09:00 Proposed Procedures p Right Breast Lumpectomy with Mag Seed Localization, Possible Adjacent Tissue Transfer - Jayne Mcgowan MD Date/Time: 06/18/25 07:20 Surgeon: Jayne Mcgowan MD Pre Op Diagnosis: Intraductal Ca In Situ Rt Breast Patient Data Age: 59 Gender: F Height: 1.63 m Weight: 81.1 kg Last Vital Signs Temp 36.3 C L 06/18/25 06:35 Pulse 100 06/18/25 06:35 Resp 18 06/18/25 06:35 BP 138/78 06/18/25 06:35 Pulse Ox 100 06/18/25 06:35 O2 Del Method Room Air 06/18/25 06:35 Allergies Allergy/AdvReac Type Severity Reaction Status Date / Time No Known Allergies Allergy Verified 06/12/25 15:25 Home Medications ?Medication ?Instructions ?Recorded ?Confirmed ?Type esomeprazole magnesium 40 mg 40 mg PO DAILY 11/04/23 06/18/25 History capsule,delayed release calcium 600 mg (as 2 cap PO DAILY 12/24/24 06/18/25 History carbonate)-vitamin D3 12.5 mcg (500 unit) capsule (Calcium with Vit D3) latanoprost 0.005 % eye drops 1 drp EACH EYE DAILY 12/24/24 06/18/25 History rimegepant 75 mg disintegrating 75 mg PO ONCE PRN migraine headache 12/24/24 06/06/25 History tablet (Nurtec ODT) sucralfate 1 gram tablet 1 g PO DAILY PRN gerd 05/27/25 06/06/25 History atorvastatin 40 mg tablet 40 mg PO QPM 06/18/25 06/18/25 History Patient hx anesthesia problems: none Family hx anesthesia problems: none Results Review: All pre-operative results and documents have been reviewed as part of the pre-operative evaluation. [facility] Past Medical History Medical History Elective Thyroid nodule Migraine Acid reflux Surgical History Surgical History H/O partial thyroidectomy Hx of cholecystectomy Family History Family History Mother Diabetes mellitus Father Hypertension Heart problem Multiple myeloma Sibling Hypertension Grandparent Heart problem Diabetes mellitus Social History Social History Smoking status: Never smoker Alcohol intake: current Alcohol use details: 2x/month Substance use: never Substance use type: does not use Do You Feel Safe in your Home?: No Lack of Transportation: No Lack of Food: Never True Current Housing: I Have Housing Concerned About Future Housing: No Difficulty Paying Gas/Electric Bills: No Difficulty Paying for Meds: No Currently Unemployed: No Education: Bachelor's Degree Difficulty w/ Childcare or Family Care: No Living arrangements: with family Spiritual care concerns: No Anes - Eval Final PreProcedure Day of Procedure 06/18/25 07:20 Patient weight: obese Heart: regular rate and rhythm Lungs: clear to auscultation Airway: Mallampati scale class II Neurological: alert and oriented Last oral intake: >/= 8 hours ASA classification: III Emergent: no Anesthetic plan: proceed Anesthesia type and monitoring: general LMA and standard monitoring Results Review: All pre-operative results and documents have been reviewed as part of the pre-operative evaluation. Informed Consent: The patient's anesthetic plan and its attendant risks and benefits were discussed with the patient/family/POA. Questions were solicited and answers provided to the satisfaction of the patient/family/POA.
[2025-06-18] MEDS: BUPIVACAINE/EPINEPHRINE 0.5% 30 ML VIAL 20 ML INFILTRATE (07:29)
[2025-06-18] MEDS: ceFAZolin 2 GM in SODIUM CHLORIDE 0.9% IV 50 ML 100 ML IVPB (07:29)
[2025-06-18] MEDS: SCOPOLAMINE 1 MG PATCH 1 PATCH TRANSDERM (07:41)
--- NOTE | 2025-06-18 08:11 | S_PTH ---
PATIENT: Jayleen Muniz LOC: [facility] U#:[id number] AGE/SX: 59/F ROOM: RE06/18/[address]: Jayne Mcgowan MD : 1965 BED: DIS: 06/18/2025 SPEC #: [id number] RECD: 06/18/25 08:29 STATUS: TAYLOR BASS #: [id number] POLY: 06/18/25 08:[address]: Jayne Mcgowan DEPT: [facility] Surgical RECD BY: Anayeli Conklin ENTERED: 06/18/25 08:30 SP TYPE: Surgical OTHR DR: Gabino aM, Tissues: A - Breast Lumpectomy B - Breast Lumpectomy C - Breast Lumpectomy Procedures: Hematoxylin and Eosin Stain Gross and Microscopic Level 5
--- NOTE | 2025-06-18 08:38 | P.OP_ITS ---
Procedure Note - Detailed Date of Procedure 06/18/25 Pre-op Diagnosis Intraductal Ca In Situ Rt Breast Post-op Diagnosis Same Procedure Performed Right breast lumpectomy with magseed localization Surgeon Jayne Mcgowan MD Anesthesia MAC Description of Procedure Patient was identified in the pre-operative area and brought to the OR suite. She underwent tumor localization previously by IR with magseed placement. She was laid supine in the operating table and sequential compression devices were applied. Sedation anesthesia was induced without difficulties. The right chest was prepped and draped in a sterile fashion. The sentimag probe was used to identify the area where the magseed was placed and a superior curvilinear incision was made. Dissection was carried down through the subcutaneous tissue into the breast tissue. The area of concern was identified using sentimag probe, and a rim of normal breast tissue was excised along with the microcalcifications as our lumpectomy specimen. Once the specimen was completely excised, it was oriented using surgical paint according to educational speech language clinician instructions. The specimen was placed in the faxitron and 2 radiographs were obtained and sent to Radiology for radiographic confirmation of Tumor, biopsy marker and magseed within the specimen. Once the radiographic confirmation was received, the wound was irrigated with saline and hemostasis was assured. The deep dermal layer was approximated using interrupted 3-0 vicryl followed by 4-0 monocryl for the skin. Dermabond was applied followed by a surgical bra. Patient was awoken from anesthesia and taken to the recovery area in stable condition. All needles, instruments and sponge counts were correct as reported by the operating room staff. Patient tolerated the procedure well with no immediate complications. Estimated Blood Loss 5 Pathology Yes Complications No immediate complications Condition Stable Disposition PACU [facility] Billing Surgery - Charge Forward: Surgery Billing (CPT 28550)
[2025-06-18 08:43] VITALS: BP 87/51; PULSE 82; RESP 16; O2SAT 98
[2025-06-18 09:10] VITALS: BP 108/64; PULSE 76; RESP 16; O2SAT 99
[2025-06-18 09:40] VITALS: BP 124/74; PULSE 70; RESP 16
== END 2025-06-18 09:50 | disposition home or self-care (01) ==
PROVIDERS: PCP Internal Medicine; Visit Provider Surgery
PROC: (CPT 19301; principal; 2025-06-18 09:00)
DX: D05.11 Intraductal carcinoma in situ of right breast (principal); N60.11 Diffuse cystic mastopathy of right breast; K21.9 Gastro-esophageal reflux disease without esophagitis; E66.9 Obesity, unspecified; Z68.30 Body mass index [BMI] 30.0-30.9, adult; Z98.890 Other specified postprocedural states; Z90.49 Acquired absence of other specified parts of digestive tract; Z82.49 Family history of ischemic heart disease and other diseases of the circulatory system
CPT/HCPCS: 19301; 76098; 88307; J0690; A9270; J2003; J2250; J2405; J2704; J3010; J7120

== ENCOUNTER 2025-07-02 01:17 | Day surgery (SDC) | payer OTHER, SELFPAY ==
--- NOTE | 2025-06-30 13:54 | SUR.PREOP ---
[facility] has started construction of its new state of the art ER which will open Spring 2026. With this, we anticipate parking may be a challenge for some our surgical patients and families. Parking spaces are limited but are available for all Surgical, obstetrics, and ER patients sharing this lot. If you arrive and find you are having a hard time finding a parking space, please note that we understand the challenges, please drive around the hospital and park near Hospital Entrance 1. When you enter this entrance, you can ask a volunteer to direct or take you back to the surgical waiting area to check in. We appreciate everyone?s understanding of these expected challenges while we build for your future. Report to the Outpatient Waiting Room, entrance under the green pavilion located off [address], at time _930AM__ on date __07/02/25_. Planned Procedure Time: __1130am__.? Time changes happen often and if your time is changed the preop area will call you the afternoon before. - You and your visitor will be asked to self-screen and do not enter if you have any COVID symptoms. Please call surgeon if you need to reschedule. - A mask is optional within the hospital at this time. Patients may have clear liquids (water, carbonated beverages, clear teas, apple juice) until 3 hours prior to surgery with a maximum of 20 ounces. - No food from midnight until time of surgery and no smoking, or chewing tobacco (or any form of nicotine). No chewing gum, candy or mints. Take only the following medications with a SIP of water on the morning of surgery: _nurtec ODT if needed__ DO NOT STOP ANY OF YOUR OTHER PRESCRIPTION MEDICATIONS PRIOR TO SURGERY EXCEPT THE FOLLOWING Hold all vitamins and supplements for 3 days per anesthesiologist. Medications to discontinue per physician __None__ Date to take last dose_today now 06/30/25__ Please no make-up, nail sinhala, hairspray, perfume, deodorant, or body powder the day of surgery.? No jewelry (including any body piercings) or valuables the day of surgery, leave them at home.? Please take a shower or bath the night before, or the morning of, surgery with an antibacterial soap.? Wear comfortable, loose fitting clothing.? Children are encouraged to wear pajamas. - Jewelry must be removed prior to entering the operating room.? Rings and piercings that are not removed may be cut off. - The hospital will not accept responsibility for valuables.? - Please leave all valuables, including medications, at home the day of surgery. If you are going home after surgery, a licensed bottom hoop driver must drive you home.? - NO public transportation without another adult if you receive anesthesia. - We recommend that an adult stay with you for 24 hours following discharge. - We also recommend that you do not drive, make important decision, drink alcoholic beverages, or take any drugs that were not prescribed by your health care provider for at least 24 hours after your discharge time. For Pediatric surgeries, we recommend two adults accompany the child home. Follow any additional instructions given to you from your surgeon. Telephone instructions given to __Jayleen___and asked if any additional questions and then verbalized understanding. Patient advised to call surgeon office or pre surgery nurse liaison [phone] if any additional questions.
[2025-06-30 13:59] VITALS: BMI 31.1
[2025-07-02 09:40] VITALS: BP 142/77; PULSE 85; RESP 16; TEMP 36.6; O2SAT 98
[2025-07-02] MEDS: ACETAMINOPHEN 500 MG TABLET 1000 MG PO (09:51)
[2025-07-02] MEDS: LACTATED RINGERS 1,000 ML 30 ML IV CONT (09:55)
--- NOTE | 2025-07-02 10:11 | WPDHPUPDATE1 ---
History and Physical Update Update Date/Time: 07/02/25 10:11 - Re-excision of right lumpectomy posterior margin. History and Physical has been reviewed, including an updated exam of the patient. There are NO changes in the patient's condition. Risks, benefits, and alternatives have been discussed and questions answered. Patient agrees to proceed with procedure.
--- NOTE | 2025-07-02 10:36 | P.PNAN_ITS ---
Anes - Initial Pre Proc Eval Procedure: Operation Date: 07/02/25 11:30 Proposed Procedures p Re-Excision of Right Lumpectomy Posterior Margin - Jayne Mcgowan MD Date/Time: 07/02/25 10:36 Surgeon: Jayne Mcgowan MD Pre Op Diagnosis: CA Insitu Right Breast Patient Data Age: 59 Gender: F Height: 1.63 m Weight: 80.7 kg Last Vital Signs Temp 36.6 C 07/02/25 09:40 Pulse 85 07/02/25 09:40 Resp 16 07/02/25 09:40 BP 142/77 H 07/02/25 09:40 Pulse Ox 98 07/02/25 09:40 O2 Del Method Room Air 07/02/25 09:40 Allergies Allergy/AdvReac Type Severity Reaction Status Date / Time No Known Allergies Allergy Verified 07/02/25 09:45 Home Medications ?Medication ?Instructions ?Recorded ?Confirmed ?Type esomeprazole magnesium 40 mg 40 mg PO DAILY 11/04/23 1 09/01/24 History capsule,delayed release calcium 600 mg (as 2 cap PO DAILY 12/24/2406/21 History carbonate)-vitamin D3 12.5 mcg (500 unit) capsule (Calcium with Vit D3) latanoprost 0.005 % eye drops 1 drp EACH EYE DAILY 02/1206/30/25 History rimegepant 75 mg disintegrating 75 mg PO ONCE PRN migr maximiliano headache 12/24/24 06/30/25 History tablet (Nurtec ODT) sucralfate 1 gram tablet 1 g PO DAILY PRN gerd 06/30/25 History Patient hx anesthesia problems: none Family hx anesthesia problems: none Results Review: All pre-operative results and documents have been reviewed as part of the pre- operative evaluation. [facility], [facility] Past Medical History Medical History (Updated 07/02/25 @ 10:37 by Kwame Pollard MD) Ductal carcinoma in situ of right breast Thyroid nodule Migraine Acid reflux Surgical History Surgical History H/O partial thyroidectomy Hx of cholecystectomy Family History Family History Mother Diabetes mellitus Father Hypertension Heart problem Multiple myeloma Sibling Hypertension Grandparent Heart problem Diabetes mellitus Social History Social History Smoking status: Never smoker Alcohol intake: current Alcohol use details: 2x/month Substance use: never Substance use type: does not use Do You Feel Safe in your Home?: No Lack of Transportation: No Lack of Food: Never True Current Housing: I Have Housing Concerned About Future Housing: No Difficulty Paying Gas/Electric Bills: No Difficulty Paying for Meds: No Currently Unemployed: No Education: Bachelor's Degree Difficulty w/ Childcare or Family Care: No Living arrangements: with family Spiritual care concerns: No Anes - Eval Final PreProcedure Day of Procedure 07/02/25 10:36 Patient weight: obese Heart: regular rate and rhythm Lungs: clear to auscultation Airway: Mallampati scale class II Neurological: alert and oriented Last oral intake: >/= 8 hours ASA classification: III Emergent: no Anesthetic plan: proceed Anesthesia type and monitoring: general LMA and standard monitoring Results Review: All pre-operative results and documents have been reviewed as part of the pre- operative evaluation. Informed Consent: The patient's anesthetic plan and its attendant risks and benefits were discussed with the patient/family/POA. Questions were solicited and answers provided to the satisfaction of the patient/family/POA.
[2025-07-02] MEDS: SCOPOLAMINE 1 MG PATCH 1 PATCH TRANSDERM (10:42)
[2025-07-02] MEDS: ceFAZolin 2 GM in SODIUM CHLORIDE 0.9% IV 50 ML 100 ML IVPB (11:10)
--- NOTE | 2025-07-02 11:25 | S_PTH ---
PATIENT: Jayleen Muniz LOC: [facility] U#:[id number] AGE/SX: 59/F ROOM: RE07/02/[address]: Jayne Mcgowan MD : 1965 BED: DIS: 07/02/2025 SPEC #: [id number] RECD: 07/02/25 11:38 STATUS: TAYLOR REQ #: [id number] POLY: 07/02/25 11:[address]: Jayne Mcgowan DEPT: [facility] Surgical RECD BY: Anayeli Conklin ENTERED: 07/02/25 11:39 SP TYPE: Surgical OTHR DR: Gabino Ma, Tissues: A - Breast Re-Excision Procedures: Hematoxylin and Eosin Stain Gross and Microscopic Level 5
[2025-07-02] MEDS: BUPIVACAINE/EPINEPHRINE 0.5% 30 ML VIAL 6 ML INFILTRATE (11:37)
--- NOTE | 2025-07-02 11:40 | W.PM.PROC2 ---
Procedure Note - Detailed Date of Procedure 07/02/25 Pre-op Diagnosis CA Insitu Right Breast Post-op Diagnosis Same Procedure Performed Re-excision of right lumpectomy posterior margin Surgeon Jayne Mcgowan MD Anesthesia MAC Description of Procedure Patient was identified in the preoperative holding area brought to the operating room suite. She was laid supine in the OR table sequential compression devices were applied. Anesthesia was induced without difficulty. The right chest area was prepped and draped in a sterile fashion. An incision was made at the site of the previous lumpectomy incision and dissection was carried down into the subcutaneous tissue opening the previous dermal stitches and for the lumpectomy cavity was encounter was a small amount of seroma like fluid evacuated upon entering. The posterior margin was easily identifiable by previously placed hemoclips and I proceeded to excise the posterior margin. The specimen was sent to pathology as a fresh specimen, indicating that the new posterior margin was inked. The cavity was irrigated with saline hemostasis was assured. New small hemoclips were placed in the cavity and I proceeded to approximate the cavity with intraparenchymal 2 0 Vicryl sutures. The deep dermal layer was then closed with 3-0 Vicryl followed by 4-0 Monocryl in a subcuticular fashion for the skin. Dermabond was applied followed by sterile dressing and a compression bra. Patient was awoken from anesthesia and taken to the recovery area in stable condition. All needles, instruments, and sponge counts were correct as reported by the operating room staff. Patient tolerated the procedure well with no immediate complications. Estimated Blood Loss 1 Pathology Yes Complications No immediate complications Condition Stable Disposition PACU [facility] Billing Surgery - Charge Forward: Surgery Billing (CPT 39062 - modifier 58)
--- NOTE | 2025-07-02 11:42 | SUR.OPER ---
Re-Excision of Right Breast Lumpectomy Posterior Margin with Ink Marking New Posterior Margin sent with Jeanine and received in Pathology by
[2025-07-02 11:51] VITALS: BP 116/67; PULSE 78; O2SAT 100
[2025-07-02 12:21] VITALS: BP 128/79; PULSE 73
[2025-07-02 12:50] VITALS: BP 115/70; PULSE 69
== END 2025-07-02 13:00 | disposition home or self-care (01) ==
PROVIDERS: PCP Internal Medicine; Visit Provider Surgery
PROC: (CPT 19301; principal; 2025-07-02 11:30)
DX: D05.11 Intraductal carcinoma in situ of right breast (principal); E66.9 Obesity, unspecified; Z68.30 Body mass index [BMI] 30.0-30.9, adult
CPT/HCPCS: 19301; 88307; J0690; A9270; J2704; J3010; J7120